=== PATIENT | female | born 1955 | race Hispanic/Latino ===

== ENCOUNTER → 2018-04-16 | Outpatient (CLI) | payer OTHER ==
[~2018-04-16] MED LIST: ATEN50TA PO; CALC-484 PO; CIPR-278 PO; MAGN400C PO; METR500T4 PO; PROM25TA7 PO; RANI300T4 PO; SUCR1TAB2 PO; SUMA100T PO
== END | disposition home or self-care (01) ==
LOC: RAH 13:54
PROVIDERS: ATTEND Family Medicine
DX: E04.2 Nontoxic multinodular goiter (principal)
CPT/HCPCS: 76536

== ENCOUNTER → 2018-05-04 | Outpatient (CLI) | payer OTHER | END | disposition home or self-care (01) | LOC: RAH 08:14 | PROVIDERS: ATTEND Family Medicine | DX: R55 Syncope and collapse (principal); I10 Essential (primary) hypertension; E66.9 Obesity, unspecified | CPT/HCPCS: 93306; 93880 ==

== ENCOUNTER 2018-06-18 08:14 | Day surgery (SDC) | payer OTHER ==
[2018-06-16 08:50] LABS: LYMPHOCYTES % (AUTO) 36.7 % (21.0-51.0); MEAN CORPUSCULAR HEMOGLOBIN 30.1 pg (27.0-33.0); MEAN CORPUSCULAR VOLUME 91.3 fL (79-99); MONOCYTES % (AUTO) 5.4 % (3.0-13.0); NEUTROPHILS % (AUTO) 54.9 % (40.0-77.0); NUCLEATED RED BLOOD CELLS 0.1 % (0.0-0.19); PLATELET COUNT (AUTO) 123 K/uL (130-400); RED BLOOD CELL COUNT(AUTO) 4.16 MIL/uL (4.00-5.50); RED CELL DISTRIBUTION WIDTH 14.1 % (11.0-15.5); WHITE BLOOD COUNT (AUTO) 4.6 K/uL (4.8-10.8)
[2018-06-16 08:51] VITALS: BP 137/82
[2018-06-16 08:56] LABS: APPEARANCE,URINE Clear (CLEAR); BILIRUBIN,URINE Negative (NEGATIVE); COLOR,URINE Yellow (YELLOW); GLUCOSE, URINE (UA) Negative (NEGATIVE); KETONES,URINE Negative (NEGATIVE); LEUKOCYTE ESTERASE ,URINE Trace (NEGATIVE); NITRATE,URINE Negative (NEGATIVE); OCCULT BLOOD,URINE Negative (NEGATIVE); PH,URINE 5.5 (5.0-8.0); PROTEIN,URINE POS 2+ (NEGATIVE); UROBILINOGEN,URINE 0.2 mg/dL (0.2-1.0)
[2018-06-16 09:06] LABS: CREATININE 0.6 mg/dL (0.5-1.5); POTASSIUM 3.6 mmol/L (3.5-5.1)
[2018-06-16 09:07] LABS: INR 0.93 (0.85-1.15); PARTIAL THROMBOPLASTIN TIME 27.8 SEC (26.3-35.5); PROTHROMBIN TIME 9.8 SEC (9.6-11.6)
[2018-06-16 09:14] LABS: BACTERIA,URINE Rare /HPF (None Seen); RBC,URINE 0-1 /HPF (0-1); SQUAMOUS EPITHELIAL CELL,UR Rare /HPF (0-2); WBC,URINE 0-1 /HPF (0-1)
[~2018-06-18] VITALS: Ht 160 cm; Wt 100.1 kg
[2018-06-18] VITALS (11 sets, daily range): BP systolic 117–156; BP diastolic 76–92
[~2018-06-18 08:14] MED LIST changes: +ASPI-555 PO; -ATEN50TA PO; -CALC-484 PO; -CIPR-278 PO; +DIAZ2TAB3 PO; +LISI10TA7 PO; -MAGN400C PO; -METR500T4 PO; +PANT40TA25 PO; -RANI300T4 PO; -SUCR1TAB2 PO; -SUMA100T PO
[2018-06-18] MEDS ORDERED: NITR0.4T50 SL (09:12)
[2018-06-18] MEDS ORDERED: SODIUM CHLORIDE 0.9% 1000ML 1,000 ML IV ONE (09:40)
[2018-06-18] MEDS ORDERED: LIDOCAINE HCL 2% 20ML ONE (14:39)
[2018-06-18] MEDS ORDERED: NITROGLYCERIN 5 MG/ML 10 ML VIAL IV ONE (14:39)
[2018-06-18] MEDS ORDERED: BIVALIRUDIN 250 MG/VIAL IV ONE (14:39)
[2018-06-18] MEDS ORDERED: IOHEXOL 350 MG/ML 100ML INFUS..BTL IV ONE (14:39)
[2018-06-18] MEDS ORDERED: IOHEXOL-350 50ML VIAL IV ONE (14:39)
[2018-06-18] MEDS ORDERED: MIDAZOLAM HCL 1 MG/ML 2ML VIAL ONE (15:22)
[2018-06-18] MEDS ORDERED: SODIUM CHLORIDE 0.9% 1000ML 1,000 ML IV SCH (16:05)
[2018-06-18] MEDS ORDERED: ACETAMINOPHEN EXTRA STRENGTH 500 MG TABLET ONE (17:08)
[2018-06-18] MEDS ORDERED: ACETAMINOPHEN EXTRA STRENGTH 500 MG TABLET PO ONE (17:15)
== END 2018-06-18 20:12 | disposition home or self-care (01) ==
LOC: DAH 08:14
PROVIDERS: ATTEND Internal Medicine Cardiovascular Disease
DX: I25.118 Atherosclerotic heart disease of native coronary artery with other forms of angina pectoris (principal); I10 Essential (primary) hypertension; Z68.39 Body mass index [BMI] 39.0-39.9, adult; Z98.890 Other specified postprocedural states; Z90.710 Acquired absence of both cervix and uterus; Z82.49 Family history of ischemic heart disease and other diseases of the circulatory system
CPT/HCPCS: 36415; 71045; 80048; 81001; 85025; 85610; 85730; 93005; 93458; A4606; C1760; C1894; J1644; J2250; J3490 ×2; J7030; Q9965; Q9967 ×2; J0583

== ENCOUNTER → 2018-07-19 | Outpatient (CLI) | payer OTHER ==
[~2018-07-19] MED LIST changes: +NITR0.4T50 SL
== END | disposition home or self-care (01) ==
LOC: RAH 12:55
PROVIDERS: ATTEND Obstetrics & Gynecology
DX: Z12.31 Encounter for screening mammogram for malignant neoplasm of breast (principal)
CPT/HCPCS: 77067

== ENCOUNTER → 2018-10-27 | Outpatient (CLI) | payer OTHER ==
[2018-10-27 17:07] LABS: CREATININE 0.5 mg/dL (0.5-1.5)
== END | disposition home or self-care (01) ==
LOC: LAB 16:17
PROVIDERS: ATTEND Internal Medicine Gastroenterology
DX: R10.13 Epigastric pain (principal)
CPT/HCPCS: 36415; 82565; 84520

== ENCOUNTER → 2018-10-28 | Outpatient (CLI) | payer OTHER | END | disposition home or self-care (01) | LOC: RAH 10:34 | PROVIDERS: ATTEND Internal Medicine Gastroenterology | DX: K31.84 Gastroparesis (principal) | CPT/HCPCS: 78264; A9541 ==

== ENCOUNTER → 2018-10-29 | Outpatient (CLI) | payer OTHER ==
[~2018-10-29] MED LIST changes: +IOHEXOL-350 75 ML VIAL IV ONE
== END | disposition home or self-care (01) ==
LOC: RAH 09:58
PROVIDERS: ATTEND Internal Medicine Gastroenterology
DX: K76.0 Fatty (change of) liver, not elsewhere classified (principal); K57.90 Diverticulosis of intestine, part unspecified, without perforation or abscess without bleeding; M47.815 Spondylosis without myelopathy or radiculopathy, thoracolumbar region; N32.89 Other specified disorders of bladder
CPT/HCPCS: 74178; Q9967

== ENCOUNTER 2018-12-15 13:00 | Emergency (ER) | payer OTHER ==
[~2018-12-15 13:00] MED LIST changes: -IOHEXOL-350 75 ML VIAL IV ONE
[2018-12-15] MEDS ORDERED: ORPHENADRINE CITRATE 30 MG/ML ML ONE (13:05)
[2018-12-15] MEDS ORDERED: KETOROLAC TROMETHAMINE 60 MG/2 ML VIAL ONE (13:05)
[2018-12-15] MEDS ORDERED: METHYLPREDNISOLONE SOD SUCC 125MG/2ML VIAL ONE (13:40)
== END 2018-12-15 14:02 | disposition home or self-care (01) ==
LOC: EDH 13:00
DX: T78.40XA Allergy, unspecified, initial encounter (principal); I10 Essential (primary) hypertension; E78.5 Hyperlipidemia, unspecified; Z98.890 Other specified postprocedural states; Z90.710 Acquired absence of both cervix and uterus; X58.XXXA Exposure to other specified factors, initial encounter
CPT/HCPCS: 96372; 99283; J2930; J1885

== ENCOUNTER 2019-06-29 06:43 | Emergency (ER) | payer OTHER ==
[2019-06-29] MEDS ORDERED: KETOROLAC TROMETHAMINE 30MG/ML ONE (07:30)
[2019-06-29] MEDS ORDERED: MORPHINE SULFATE 5 MG/ML VIAL ONE (07:31)
[2019-06-29 07:54] LABS: APPEARANCE,URINE Clear (CLEAR); BILIRUBIN,URINE Negative (NEGATIVE); COLOR,URINE Yellow (YELLOW); GLUCOSE, URINE (UA) Negative (NEGATIVE); KETONES,URINE Negative (NEGATIVE); LEUKOCYTE ESTERASE ,URINE Trace (NEGATIVE); NITRATE,URINE Negative (NEGATIVE); OCCULT BLOOD,URINE Negative (NEGATIVE); PROTEIN,URINE Trace mg/dL (NEGATIVE)
[2019-06-29 08:22] LABS: BACTERIA,URINE Rare /HPF (None Seen); RBC,URINE 0-1 /HPF (0-1); SQUAMOUS EPITHELIAL CELL,UR Rare /HPF (0-2); WBC,URINE 0-1 /HPF (0-1)
== END 2019-06-29 07:40 | disposition home or self-care (01) ==
LOC: EDH 06:43
DX: M54.5 Low back pain (principal); E78.5 Hyperlipidemia, unspecified; G89.29 Other chronic pain; I10 Essential (primary) hypertension; Z98.890 Other specified postprocedural states; Z87.891 Personal history of nicotine dependence
CPT/HCPCS: 81001; 96372 ×2; 99284; J1885; J2270

== ENCOUNTER 2019-11-28 12:00 | Inpatient (IN) | payer OTHER ==
[2019-11-25 10:48] VITALS: BP 150/91
[2019-11-25 15:10] LABS: BASOPHILS % (AUTO) 0.2 % (0.0-5.0); EOSINOPHILS % (AUTO) 2.3 % (0.0-8.0); HEMATOCRIT 39.2 % (36-48); LYMPHOCYTES % (AUTO) 35.8 % (21.0-51.0); MEAN CORPUSCULAR HEMOGLOBIN 30.1 pg (27.0-33.0); MEAN CORPUSCULAR HGB CONC 33.7 g/dL (32.0-36.0); MEAN CORPUSCULAR VOLUME 89.5 fL (79-99); MONOCYTES % (AUTO) 6.1 % (3.0-13.0); NEUTROPHILS % (AUTO) 55.2 % (40.0-77.0); PLATELET COUNT (AUTO) 136 K/uL (130-400); RED BLOOD CELL COUNT(AUTO) 4.38 MIL/uL (4.00-5.50); RED CELL DISTRIBUTION WIDTH 12.3 % (11.0-15.5); WHITE BLOOD COUNT (AUTO) 5.6 K/uL (4.8-10.8)
[2019-11-25 15:23] LABS: INR 0.93 (0.85-1.15); PARTIAL THROMBOPLASTIN TIME 26.4 SEC (26.3-35.5); PROTHROMBIN TIME 10.1 SEC (9.6-11.6)
[~2019-11-28] VITALS: Ht 162.6 cm; Wt 101.2 kg
[~2019-11-28 12:00] MED LIST changes: -ASPI-555 PO; +CLON0.5T4 PO; -DIAZ2TAB3 PO; +HYDR-4068 PO; -LISI10TA7 PO; +LISI40TA4 PO; -NITR0.4T50 SL; -PANT40TA25 PO
[2019-11-29] VITALS (23 sets, daily range): BP systolic 96–145; BP diastolic 51–96
[2019-11-29] MEDS ORDERED: LACTATED RINGERS 1000ML 1,000 ML IV ONE (06:08)
[2019-11-29] MEDS ORDERED: CEFAZOLIN SODIUM 1 GM VIAL ONE ×2 (06:09→06:49)
[2019-11-29] MEDS ORDERED: VANCOMYCIN HCL 1 GM VIAL ONE (06:44)
[2019-11-29] MEDS ORDERED: BUPIVACAINE/PF 0.25% 30ML VIAL IJ ONE (06:44)
[2019-11-29] MEDS ORDERED: THROMBIN-JMI 5000 UNIT/VIAL TP ONE (06:45)
[2019-11-29] MEDS ORDERED: DURAMORPH PF1 MG/ML 10ML AMP IV ONE (06:45)
[2019-11-29] MEDS ORDERED: THROMBIN-JMI 20000 UNIT KIT TP ONE (06:49)
--- NOTE | 2019-11-29 06:51 | NUR ---
ANESTHESIA Christiano Muniz CRNA here assessed pt ,notified of BP AND PAIN Addendum: 11/29/19 at 0653 by CURT BOYLE RN RN Amended: Links added.
[2019-11-29] MEDS ORDERED: FENTANYL CITRATE PF 50 MCG/1 ML 2ML VIAL ONE ×2 (06:57→07:59)
[2019-11-29] MEDS ORDERED: LIDOCAINE PF 2% 5ML ABBOJECT ONE (06:57)
[2019-11-29] MEDS ORDERED: DEXAMETHASONE SOD PHOSPHATE 10MG/ML 1ML VIAL ONE (06:57)
[2019-11-29] MEDS ORDERED: ONDANSETRON HCL 4 MG/2 ML VIAL ONE ×2 (06:57→11:49)
[2019-11-29] MEDS ORDERED: PROPOFOL 10 MG/ML 20ML VIAL IV ONE (06:58)
[2019-11-29] MEDS ORDERED: MIDAZOLAM HCL 1 MG/ML 2ML VIAL ONE (06:58)
[2019-11-29] MEDS ORDERED: ROCURONIUM 10MG/1ML SYR 10 MG/ML ML ONE (06:58)
[2019-11-29] MEDS ORDERED: MEPERIDINE-PF 25 MG/ML SYG ONE ×2 (07:02→11:20)
[2019-11-29] MEDS ORDERED: CEFAZOLIN 3GM /D5W 100ML 100 ML IV PRN (08:00)
[2019-11-29] MEDS ORDERED: EPHEDRINE SULFATE 50 MG/ML AMPULE ONE (08:26)
[2019-11-29] MEDS ORDERED: TOBRAMYCIN SULFATE 40MG/1ML VIAL ONE (09:02)
[2019-11-29] MEDS: CALDOLOR 800MG+NS 250ML 250 ML IV SCH ×2 (10:00→11:00)
[2019-11-29] MEDS ORDERED: GLYCOPYRROLATE 1 MG/5 ML SYRINGE ONE (10:24)
[2019-11-29] MEDS ORDERED: BACITRACIN 28.4 GM OINT TP ONE (10:25)
[2019-11-29] MEDS ORDERED: NEOSTIGMINE 5MG/5ML SYR IV ONE (10:25)
[2019-11-29] MEDS ORDERED: MORPHINE SULFATE 2 MG/ML 1ML SYG ONE (11:32)
[2019-11-29] MEDS ORDERED: ACETAMINOPHEN-CODEINE 300/30MG TAB ONE (14:22)
[2019-11-29] MEDS: SODIUM CHLORIDE 0.9% 1000ML 1,000 ML IV SCH (14:24)
[2019-11-29] MEDS: CEFAZOLIN SODIUM 1 GM VIAL IVP SCH ×2 (14:25→21:10)
[2019-11-29] MEDS ORDERED: MEPERIDINE-PF 75 MG/ML SYG IVP PRN (15:54)
[2019-11-29] MEDS: MEPERIDINE-PF 50 MG/ML SYG IVP PRN ×3 (16:11→23:40)
[2019-11-29] MEDS: MEPERIDINE-PF 25 MG/ML SYG IVP PRN ×3 (16:12→23:39)
[2019-11-29] MEDS ORDERED: MEPERIDINE-PF 25 MG/ML SYG IVP PRN (16:15)
--- NOTE | 2019-11-29 16:15 | NUR ---
MICHAEL PLAN VISITED WITH PATIENT POST PROCEDURE. SAID SHE IS GROGGY AND TIRED AND IF CM COULD RETURN TO DO [place]. VERBALIZED UNDERSTANDING. CM WILL CONTINUE TO FOLLOW. Addendum: 11/29/19 at 1616 by OTIS TONY RN CM Amended: Links added.
--- NOTE | 2019-11-29 16:19 | NUR ---
PT J-P COMPRESSED, AND GIVEN 75MG DEMEROL IM FOR PAIN TO LOWER BACK AND LEFT LEG.
[2019-11-29] MEDS: ACETAMINOPHEN-CODEINE 300/30MG TAB PO PRN (21:21)
[2019-11-29] MEDS ORDERED: PROMETHAZINE HCL 25 MG TABLET PO PRN ×2 (21:45→23:15)
[2019-11-29] MEDS ORDERED: HYDROCODONE/ACETAMINOPHEN 10/325 MG TAB PO PRN ×2 (21:45→23:15)
[2019-11-29] MEDS ORDERED: CLONAZEPAM 0.5 MG TABLET PO PRN (21:45)
[2019-11-29] MEDS: PHARMACY COMMUNICATION MISC SCH (22:00)
[2019-11-29] MEDS ORDERED: CLONAZEPAM 1 MG TABLET PO PRN (23:15)
[2019-11-30 00:06] VITALS: BP 101/65
[2019-11-30] MEDS: SODIUM CHLORIDE 0.9% 1000ML 1,000 ML IV SCH (02:31)
[2019-11-30] MEDS: MEPERIDINE-PF 50 MG/ML SYG IVP PRN ×4 (03:14→17:34)
[2019-11-30] MEDS: MEPERIDINE-PF 25 MG/ML SYG IVP PRN (03:15)
[2019-11-30 03:27] VITALS: BP 95/59
[2019-11-30] MEDS: ACETAMINOPHEN-CODEINE 300/30MG TAB PO PRN ×2 (05:20→20:04)
[2019-11-30] MEDS: CEFAZOLIN SODIUM 1 GM VIAL IVP SCH ×3 (05:20→19:59)
[2019-11-30] MEDS: PHARMACY COMMUNICATION MISC SCH ×3 (05:51→22:00)
[2019-11-30 07:30] VITALS: BP 101/50
[2019-11-30] MEDS: LISINOPRIL 40 MG TABLET PO SCH (09:00)
[2019-11-30] MEDS: GABAPENTIN 300 MG CAPSULE PO SCH ×2 (09:20→19:59)
[2019-11-30 11:09] VITALS: BP 113/69
[2019-11-30 15:52] VITALS: BP 142/86
[2019-11-30 20:00] VITALS: BP 124/79
--- NOTE | 2019-11-30 20:40 | NUR ---
paged Dr. cohen about patient' fever of.101.7 and tachycardia of 134. he ordered ice packs and continue to monitor.
[2019-12-01] VITALS (7 sets, daily range): BP systolic 100–142; BP diastolic 67–88
[2019-12-01] MEDS: ACETAMINOPHEN-CODEINE 300/30MG TAB PO PRN ×2 (00:51→09:08)
[2019-12-01] MEDS: MEPERIDINE-PF 50 MG/ML SYG IVP PRN ×5 (04:12→21:56)
[2019-12-01] MEDS: CEFAZOLIN SODIUM 1 GM VIAL IVP SCH ×3 (04:35→22:47)
[2019-12-01] MEDS: PHARMACY COMMUNICATION MISC SCH ×2 (06:00→14:00)
[2019-12-01] MEDS: LISINOPRIL 40 MG TABLET PO SCH (09:07)
[2019-12-01] MEDS: GABAPENTIN 300 MG CAPSULE PO SCH ×2 (09:07→21:10)
--- NOTE | 2019-12-01 14:52 | NUR ---
DCP CM met with pt discussed dc plans. Pt is independent prior to admission, lives at home with daughter Kelle [phone] and 3 sons. Denies any equipments/services. Feels safe to go back home, still drives, children able to assist with transportation and needs as necessary. DC plan to home once stable. CM to cont to follow up. Addendum: 12/01/19 at 1454 by MARGOT CREWS LVN CM Amended: Links added.
--- NOTE | 2019-12-01 17:30 | NUR ---
DR. GIPSON SPOKE TO PATIENT REGARDING DISCHARGE PLANNED FOR TOMORROW. INSTRUCTED PATIENT ON REMOVAL OF JERI IF LESS THAN 50ML. FOLLOW UP WITH HIM IN 2 WEEKS. RX LEFT IN CHART. SEE WRITTEN POST-OP DISCHARGE ORDERS.
[2019-12-02] MEDS: MEPERIDINE-PF 25 MG/ML SYG IVP PRN (02:33)
[2019-12-02] MEDS: ACETAMINOPHEN-CODEINE 300/30MG TAB PO PRN ×4 (03:57→18:24)
[2019-12-02 04:00] VITALS: BP 120/68
[2019-12-02] MEDS: CEFAZOLIN SODIUM 1 GM VIAL IVP SCH ×2 (05:37→14:03)
[2019-12-02 08:00] VITALS: BP 131/80
--- NOTE | 2019-12-02 08:15 | NUR ---
DR BRANDAN GIPSON CALLED AND GIVEN INFORMATION ON JERI DRAIN DRAINAGES OVER 50 (60 ON NIGHTS)SAID WILL LOOK AT RECOVERING JERI DRAIN THIS AFTER NOON AND POSSIBLE DISCHARGE. Addendum: 12/02/19 at 1708 by LULU ORDONEZ RN RN ERROR FROM ABOVE NOTE DR LOOMIS CALLED WITH ORDERS FOR JERI DRAIN
[2019-12-02] MEDS: GABAPENTIN 300 MG CAPSULE PO SCH (08:40)
[2019-12-02] MEDS: LISINOPRIL 40 MG TABLET PO SCH (08:41)
--- NOTE | 2019-12-02 09:42 | NUR ---
PT C/0 PAIN TO THE LEFT LEG, ALSO JERI HAD 60 ML/OVERNIGHT.
[2019-12-02 12:00] VITALS: BP 125/77
[2019-12-02] MEDS: PHARMACY COMMUNICATION MISC SCH (14:00)
[2019-12-02] MEDS ORDERED: MEPERIDINE-PF 25 MG/ML SYG IM PRN (15:15)
[2019-12-02] MEDS ORDERED: MEPERIDINE-PF 50 MG/ML SYG IM PRN (15:15)
--- NOTE | 2019-12-02 17:08 | NUR ---
DR ABREU CALLED WITH ORDERS TO Abhilash CUNHA AT 1700 AND PATIENT MAY BE DISCHARGE FOLLOW-UP WITH HIS OFFICE 2 WEEKS. Addendum: 12/02/19 at 1901 by LULU ORDONEZ RN RN DR GIPSON CALLED ORDERS FOR ABOVE
--- NOTE | 2019-12-02 19:06 | NUR ---
PATIENT GIVEN DISCHARGE ORDERS AND VERBALIZED UNDERSTANDING , IV REMOVED WITH CATHETER INTACT AND SITE DRESSED, JERI DRAIN PULLED AND DRESSING REMOVED AND AREA CLEANSE WITH NORMAL SALINE( SITE INTACT WITH STABLES) AND CLEAN DRESSING PLACED AND SECURED WITH TAPE TO BACK. PATIENT DENIES PAIN AT THIS TIME WAS MEDICATED FOR PAIN AT 1820. PATIENT CALL FOR RIDE AND SISTER HERE . SO PATIENT TAKING DOWN VIA WHEELCHAIR TO ER AREA AND LEFT WITH SISTER FOR HOME.
== END 2019-12-02 19:10 | disposition home or self-care (01) | DRG 460 ==
LOC: EDSTATUS 12:00 → DAHIP 11-29 05:08 → 3BH 11-29 12:00
PROVIDERS: ADMIT Neurological Surgery; ATTEND Neurological Surgery
PROC: 0SG30K1 Fusion of Lumbosacral Joint with Nonautologous Tissue Substitute, Posterior Approach, Posterior Column, Open Approach (ICD-10-PCS; principal; 2019-11-29 07:10)
PROC: 0SG00K1 Fusion of Lumbar Vertebral Joint with Nonautologous Tissue Substitute, Posterior Approach, Posterior Column, Open Approach (ICD-10-PCS; 2019-11-29 07:10)
DX: M48.062 Spinal stenosis, lumbar region with neurogenic claudication (principal); I10 Essential (primary) hypertension; E66.9 Obesity, unspecified; Z79.899 Other long term (current) drug therapy; Z68.38 Body mass index [BMI] 38.0-38.9, adult; M48.08 Spinal stenosis, sacral and sacrococcygeal region
CPT/HCPCS: 36415; 72110; 85025; 85610; 85730; 96374; A4344; G0378; J0690; J1030; J1100; J1741; J2001; J2175; J2250; J2274; J2405; J2704; J2710; J3010; J3260; J3370; J3490; J7030; J7120; Q0169

== ENCOUNTER → 2020-05-21 | Outpatient (CLI) | payer OTHER | END | disposition home or self-care (01) | LOC: RAH 13:08 | PROVIDERS: ATTEND Obstetrics & Gynecology | DX: Z12.31 Encounter for screening mammogram for malignant neoplasm of breast (principal); N64.89 Other specified disorders of breast | CPT/HCPCS: 77067 ==

== ENCOUNTER 2020-06-01 11:41 | Emergency (ER) | payer OTHER ==
[2020-06-01] MEDS ORDERED: KETOROLAC TROMETHAMINE 60 MG/2 ML VIAL ONE (13:15)
[2020-06-01] MEDS ORDERED: LIDOCAINE 5% TOPICAL PATCH TP ONE (13:15)
[2020-06-01] MEDS ORDERED: ACETAMINOPHEN-CODEINE 300/30MG TAB ONE (13:16)
[2020-06-01] MEDS ORDERED: DEXAMETHASONE SOD PHOSPHATE 10MG/ML 1ML VIAL ONE (13:16)
== END 2020-06-01 14:06 | disposition home or self-care (01) ==
LOC: EDH 11:41
DX: M54.30 Sciatica, unspecified side (principal); G89.29 Other chronic pain; E78.5 Hyperlipidemia, unspecified; I10 Essential (primary) hypertension; Z90.49 Acquired absence of other specified parts of digestive tract; Z90.710 Acquired absence of both cervix and uterus; Z98.890 Other specified postprocedural states
CPT/HCPCS: 96372 ×2; 99284; J1100; J1885

== ENCOUNTER 2020-07-05 12:45 | Inpatient (IN) | payer OTHER ==
[~2020-07-05] VITALS: Ht 162.6 cm; Wt 99.1 kg
[~2020-07-05 12:45] MED LIST changes: -HYDR-4068 PO
[2020-07-05 14:50] LABS: BASOPHILS % (AUTO) 0.2 % (0.0-5.0); EOSINOPHILS % (AUTO) 2.5 % (0.0-8.0); HEMATOCRIT 37.7 % (36-48); LYMPHOCYTES % (AUTO) 32.5 % (21.0-51.0); MEAN CORPUSCULAR HEMOGLOBIN 29.9 pg (27.0-33.0); MEAN CORPUSCULAR HGB CONC 32.4 g/dL (32.0-36.0); MEAN CORPUSCULAR VOLUME 92.4 fL (79-99); MONOCYTES % (AUTO) 5.7 % (3.0-13.0); NEUTROPHILS % (AUTO) 58.2 % (40.0-77.0); PLATELET COUNT (AUTO) 150 K/uL (130-400); RED BLOOD CELL COUNT(AUTO) 4.08 MIL/uL (4.00-5.50); RED CELL DISTRIBUTION WIDTH 13.4 % (11.0-15.5); WHITE BLOOD COUNT (AUTO) 5.6 K/uL (4.8-10.8)
[2020-07-05 14:57] LABS: CREATININE 0.6 mg/dL (0.5-1.5); POTASSIUM 3.6 mmol/L (3.5-5.1)
[2020-07-05 15:21] LABS: INR 0.9 (0.85-1.15); PROTHROMBIN TIME 9.7 SEC (9.6-11.6)
[2020-07-05 15:22] LABS: PARTIAL THROMBOPLASTIN TIME 25.9 SEC (26.3-35.5)
[2020-07-09 11:08] VITALS: BP 137/94
[2020-07-09] MEDS ORDERED: VITA1CAP85 PO (11:25)
[2020-07-09] MEDS ORDERED: VITA100051 PO (11:25)
[2020-07-09] MEDS ORDERED: LISI-613 PO (11:25)
[2020-07-09] MEDS ORDERED: MULT-660 PO (11:25)
[2020-07-09] MEDS ORDERED: CYAN50008 PO (11:25)
[2020-07-09] MEDS: SODIUM CHLORIDE 0.9% 1000ML 1,000 ML IV SCH (14:45)
[2020-07-09] MEDS: CEFAZOLIN SODIUM 1 GM VIAL IVP SCH (14:45)
[2020-07-10] VITALS (26 sets, daily range): BP systolic 114–155; BP diastolic 67–102
[2020-07-10] MEDS ORDERED: LACTATED RINGERS 1000ML 1,000 ML IV ONE (06:36)
[2020-07-10] MEDS ORDERED: TOBRAMYCIN SULFATE 40MG/1ML VIAL ONE (07:00)
[2020-07-10] MEDS ORDERED: VANCOMYCIN HCL 1 GM VIAL ONE (07:00)
[2020-07-10] MEDS ORDERED: BUPIVACAINE/PF 0.25% 10ML VIAL IJ ONE (07:00)
[2020-07-10] MEDS ORDERED: THROMBIN-JMI 20000 UNIT KIT TP ONE (07:01)
[2020-07-10] MEDS ORDERED: DURAMORPH PF1 MG/ML 10ML AMP IV ONE (07:01)
[2020-07-10] MEDS ORDERED: MEPERIDINE-PF 25 MG/ML SYG ONE ×4 (07:03→11:27)
[2020-07-10] MEDS ORDERED: MIDAZOLAM HCL 1 MG/ML 2ML VIAL ONE (07:11)
[2020-07-10] MEDS ORDERED: SUCCINYLCHOLINE 200MG/10ML SYR ONE (07:11)
[2020-07-10] MEDS ORDERED: FENTANYL CITRATE PF 50 MCG/1 ML 2ML VIAL ONE ×2 (07:11→09:32)
[2020-07-10] MEDS ORDERED: LIDOCAINE PF 2% 5ML ABBOJECT ONE (07:11)
[2020-07-10] MEDS ORDERED: ONDANSETRON HCL 4 MG/2 ML VIAL ONE ×3 (07:11→11:03)
[2020-07-10] MEDS ORDERED: DEXAMETHASONE SOD PHOSPHATE 10MG/ML 1ML VIAL ONE (07:11)
[2020-07-10] MEDS ORDERED: PROPOFOL 10 MG/ML 20ML VIAL IV ONE (07:11)
[2020-07-10] MEDS ORDERED: ROCURONIUM 10MG/1ML SYR 10 MG/ML ML ONE (07:12)
[2020-07-10] MEDS ORDERED: LINA72CA PO (07:14)
[2020-07-10] MEDS ORDERED: ICOS1CAP PO (07:14)
[2020-07-10] MEDS: CEFAZOLIN SODIUM 1 GM VIAL IVP SCH ×4 (07:35→19:38)
[2020-07-10] MEDS ORDERED: TRANEXAMIC ACID 1000MG/10ML ONE (07:41)
[2020-07-10] MEDS ORDERED: EPHEDRINE SULFATE 50 MG/ML AMPULE ONE (08:03)
[2020-07-10] MEDS ORDERED: ACETAMINOPHEN-CODEINE 300/30MG TAB PO PRN (12:00)
[2020-07-10] MEDS: SODIUM CHLORIDE 0.9% 1000ML 1,000 ML IV SCH ×2 (12:00→14:01)
[2020-07-10] MEDS ORDERED: NALOXONE HCL 0.4 MG/1 ML ML IVP PRN (12:00)
[2020-07-10] MEDS ORDERED: TRIMETHOBENZAMIDE HCL 100MG/1ML VIAL IM PRN (12:00)
[2020-07-10] MEDS: MEPERIDINE-PF 75 MG/ML SYG IM PRN ×3 (14:02→21:53)
[2020-07-10] MEDS ORDERED: PROMETHAZINE HCL 25 MG TABLET PO PRN (14:45)
[2020-07-10] MEDS ORDERED: CLONAZEPAM 0.5 MG TABLET PO PRN (14:45)
[2020-07-10] MEDS: FISH OIL 1000 MG/CAP PO SCH (15:25)
[2020-07-10] MEDS: CYANOCOBALAMIN (VITAMIN B-12) 1,000 MCG TABLET PO SCH (15:29)
[2020-07-10] MEDS ORDERED: ONDANSETRON HCL 4 MG/2 ML VIAL IVP PRN (17:45)
[2020-07-10] MEDS: LISINOPRIL 20 MG TABLET PO SCH (19:46)
[2020-07-10] MEDS: ACETAMINOPHEN-CODEINE 300/30MG TAB PO PRN (19:47)
[2020-07-11] MEDS: CEFAZOLIN SODIUM 1 GM VIAL IVP SCH ×2 (03:52→12:47)
[2020-07-11 03:56] VITALS: BP 114/69
[2020-07-11] MEDS: MEPERIDINE-PF 75 MG/ML SYG IM PRN ×3 (05:47→14:45)
[2020-07-11 06:26] VITALS: BP 107/87
[2020-07-11] MEDS: PHARMACY COMMUNICATION MISC SCH ×4 (08:00→23:27)
[2020-07-11] MEDS ORDERED: CYANOCOBALAMIN PO SCH (09:00)
[2020-07-11] MEDS: LINACLOTIDE 72 MCG PO SCH (09:00)
[2020-07-11] MEDS: LISINOPRIL 40 MG TABLET PO SCH (09:36)
[2020-07-11] MEDS: FISH OIL 1000 MG/CAP PO SCH (09:36)
[2020-07-11] MEDS: CYANOCOBALAMIN (VITAMIN B-12) 1,000 MCG TABLET PO SCH (09:37)
[2020-07-11] MEDS: MULTIVITAMIN TABLET PO SCH (09:37)
[2020-07-11] MEDS: VITAMIN B COMPLEX 1 CAPSULE PO SCH (09:37)
[2020-07-11] MEDS: SODIUM CHLORIDE 0.9% 1000ML 1,000 ML IV SCH ×3 (11:16→20:58)
[2020-07-11 11:55] VITALS: BP 111/70
[2020-07-11 16:00] VITALS: BP 136/94
[2020-07-11 19:30] VITALS: BP 143/90
[2020-07-11] MEDS: ACETAMINOPHEN-CODEINE 300/30MG TAB PO PRN (21:00)
[2020-07-11] MEDS: LISINOPRIL 20 MG TABLET PO SCH (21:08)
[2020-07-11 23:23] VITALS: BP 123/74
[2020-07-12] MEDS: ACETAMINOPHEN-CODEINE 300/30MG TAB PO PRN ×2 (03:34→19:14)
[2020-07-12 04:00] VITALS: BP 118/71
[2020-07-12] MEDS: MEPERIDINE-PF 75 MG/ML SYG IM PRN ×4 (05:02→17:29)
[2020-07-12 07:30] VITALS: BP 126/60
[2020-07-12] MEDS: FISH OIL 1000 MG/CAP PO SCH (09:00)
[2020-07-12] MEDS: LINACLOTIDE 72 MCG PO SCH (09:00)
[2020-07-12] MEDS: CYANOCOBALAMIN (VITAMIN B-12) 1,000 MCG TABLET PO SCH (09:14)
[2020-07-12] MEDS: MULTIVITAMIN TABLET PO SCH (09:14)
[2020-07-12] MEDS: VITAMIN B COMPLEX 1 CAPSULE PO SCH (09:14)
[2020-07-12] MEDS: LISINOPRIL 40 MG TABLET PO SCH (09:14)
[2020-07-12 11:00] VITALS: BP 125/63
[2020-07-12] MEDS: SODIUM CHLORIDE 0.9% 1000ML 1,000 ML IV SCH (12:59)
[2020-07-12] MEDS: PHARMACY COMMUNICATION MISC SCH ×2 (16:00→23:43)
[2020-07-12 19:00] VITALS: BP 148/90
[2020-07-12] MEDS: LISINOPRIL 20 MG TABLET PO SCH (20:48)
[2020-07-13] VITALS: BP 133/73
[2020-07-13] MEDS: MEPERIDINE-PF 75 MG/ML SYG IM PRN ×3 (00:30→12:41)
[2020-07-13 04:00] VITALS: BP 138/90
[2020-07-13] MEDS: ACETAMINOPHEN-CODEINE 300/30MG TAB PO PRN ×2 (04:22→15:06)
[2020-07-13 07:54] VITALS: BP 134/81
[2020-07-13] MEDS: PHARMACY COMMUNICATION MISC SCH (08:00)
[2020-07-13] MEDS: MULTIVITAMIN TABLET PO SCH (09:00)
[2020-07-13] MEDS: FISH OIL 1000 MG/CAP PO SCH (09:00)
[2020-07-13] MEDS: CYANOCOBALAMIN (VITAMIN B-12) 1,000 MCG TABLET PO SCH (09:00)
[2020-07-13] MEDS: LINACLOTIDE 72 MCG PO SCH (09:00)
[2020-07-13] MEDS: VITAMIN B COMPLEX 1 CAPSULE PO SCH (09:00)
[2020-07-13] MEDS: SODIUM CHLORIDE 0.9% 1000ML 1,000 ML IV SCH ×2 (09:48→11:49)
[2020-07-13] MEDS: LISINOPRIL 40 MG TABLET PO SCH (09:53)
[2020-07-13 11:38] VITALS: BP 104/66
[2020-07-13 16:27] VITALS: BP 132/78
== END 2020-07-13 17:40 | disposition home or self-care (01) | DRG 460 ==
LOC: EDSTATUS 12:45 → DAHIP 07-10 05:45 → 3CH 07-10 10:59
PROVIDERS: ADMIT Neurological Surgery; ATTEND Neurological Surgery
PROC: 0SG1071 Fusion of 2 or more Lumbar Vertebral Joints with Autologous Tissue Substitute, Posterior Approach, Posterior Column, Open Approach (ICD-10-PCS; principal; 2020-07-10 07:30)
PROC: 0SP304Z Removal of Internal Fixation Device from Lumbosacral Joint, Open Approach (ICD-10-PCS; 2020-07-10 07:30)
DX: M48.061 Spinal stenosis, lumbar region without neurogenic claudication (principal); M51.16 Intervertebral disc disorders with radiculopathy, lumbar region; Z20.828 Contact with and (suspected) exposure to other viral communicable diseases; M96.1 Postlaminectomy syndrome, not elsewhere classified; I10 Essential (primary) hypertension; F41.9 Anxiety disorder, unspecified; M46.86 Other specified inflammatory spondylopathies, lumbar region; G89.4 Chronic pain syndrome; M13.88 Other specified arthritis, other site; Z98.1 Arthrodesis status; Z98.891 History of uterine scar from previous surgery; Z80.9 Family history of malignant neoplasm, unspecified; Z82.49 Family history of ischemic heart disease and other diseases of the circulatory system; Z88.8 Allergy status to other drugs, medicaments and biological substances; Z79.891 Long term (current) use of opiate analgesic
CPT/HCPCS: 36415; 71045; 72110; 80048; 82948; 85025; 85610; 85730; 93005; A4344; G0378; J0330; J0690; J1030; J1100; J2001; J2175; J2250; J2274; J2405; J2704; J3010; J3260; J3370; J3490; J7030; J7120; U0003

== ENCOUNTER 2020-07-14 16:28 | Emergency (ER) | payer OTHER ==
[~2020-07-14 16:28] MED LIST changes: +CYAN50008 PO; +ICOS1CAP PO; +LINA72CA PO; +LISI-613 PO; +MULT-660 PO; +VITA1CAP85 PO
[2020-07-14] MEDS ORDERED: FENTANYL CITRATE PF 50 MCG/1 ML 2ML VIAL ONE (16:57)
== END 2020-07-14 17:47 | disposition home or self-care (01) ==
LOC: EDH 16:28
DX: B02.8 Zoster with other complications (principal); E78.5 Hyperlipidemia, unspecified; I10 Essential (primary) hypertension; G89.29 Other chronic pain; Z98.890 Other specified postprocedural states; Z90.49 Acquired absence of other specified parts of digestive tract; Z90.710 Acquired absence of both cervix and uterus; Z88.7 Allergy status to serum and vaccine
CPT/HCPCS: 96374; 99283; J3010

== ENCOUNTER → 2021-01-07 | Outpatient (CLI) | payer OTHER ==
[~2021-01-07] MED LIST changes: -CYAN50008 PO; +CYAN50009 PO; +GADOTERATE MEGLUMINE 10 MMOL/20 ML VIAL IV ONE; -LISI-613 PO; +LISI20TA24 PO; -LISI40TA4 PO; +LISI40TA9 PO
== END | disposition home or self-care (01) ==
LOC: RAH 08:36
PROVIDERS: ATTEND Family Medicine
DX: R51.9 Headache, unspecified (principal)
CPT/HCPCS: 70553; A9575

== ENCOUNTER 2022-11-28 13:04 | Emergency (ER) | payer OTHER ==
[~2022-11-28] VITALS: Ht 162.6 cm; Wt 81.2 kg
[~2022-11-28 13:04] MED LIST changes: -GADOTERATE MEGLUMINE 10 MMOL/20 ML VIAL IV ONE; +NAPR-1192 PO
[2022-11-28 14:09] LABS: EOSINOPHILS % (AUTO) 6.2 % (0.0-8.0); HEMATOCRIT 36.7 % (36-48); LYMPHOCYTES % (AUTO) 27.4 % (21.0-51.0); MEAN CORPUSCULAR HEMOGLOBIN 31.4 pg (27.0-33.0); MEAN CORPUSCULAR HGB CONC 33.2 g/dL (32.0-36.0); MEAN CORPUSCULAR VOLUME 94.3 fL (79-99); MONOCYTES % (AUTO) 5.7 % (3.0-13.0); NEUTROPHILS % (AUTO) 60.5 % (40.0-77.0); PLATELET COUNT (AUTO) 126 K/uL (130-400); RED BLOOD CELL COUNT(AUTO) 3.89 MIL/uL (4.00-5.50); RED CELL DISTRIBUTION WIDTH 13.2 % (11.0-15.5); WHITE BLOOD COUNT (AUTO) 4.4 K/uL (4.8-10.8)
[2022-11-28 14:22] LABS: CREATININE 0.5 mg/dL (0.5-1.5); POTASSIUM 4.2 mmol/L (3.5-5.1)
[2022-11-28 14:23] LABS: PARTIAL THROMBOPLASTIN TIME 27.2 SEC (26.3-35.5)
[2022-11-28 14:27] LABS: ALBUMIN 3.9 g/dL (3.5-5.0); TOTAL PROTEIN, SERUM 6.9 g/dL (6.0-8.3)
[2022-11-28 14:33] LABS: B-TYPE NATRIURETIC PEPTIDE 28 pg/mL (0-100)
[2022-11-28 14:49] LABS: INR 0.93 (0.85-1.15); PROTHROMBIN TIME 9.7 SEC (9.6-11.6)
[2022-11-28 16:57] VITALS: BP 125/78
== END 2022-11-28 17:09 | disposition home or self-care (01) ==
LOC: EDH 13:04
DX: R42 Dizziness and giddiness (principal); R29.810 Facial weakness; R53.1 Weakness; I10 Essential (primary) hypertension; Z79.899 Other long term (current) drug therapy; Z98.890 Other specified postprocedural states
CPT/HCPCS: 29105; 36415; 70450; 71045; 80053; 82550; 83880; 84484; 85025; 85610; 85730; 93005

== ENCOUNTER 2023-04-20 00:50 | Emergency (ER) | payer OTHER ==
[~2023-04-20] VITALS: Ht 162.6 cm; Wt 74.8 kg
[2023-04-20 01:27] LABS: BASOPHILS # (AUTO) 0.01 K/uL (0.00-0.20); BASOPHILS % (AUTO) 0.1 % (0.0-5.0); EOSINOPHILS % (AUTO) 2.7 % (0.0-8.0); HEMATOCRIT 38.5 % (36-48); IMMATURE GRANULOCYTE ABSOLUTE 0.01 K/uL (0-1); LYMPHOCYTES # (AUTO) 2.6 K/uL (1.0-4.8); LYMPHOCYTES % (AUTO) 35.1 % (21.0-51.0); MEAN CORPUSCULAR HEMOGLOBIN 31.9 pg (27.0-33.0); MEAN CORPUSCULAR HGB CONC 33.5 g/dL (32.0-36.0); MEAN CORPUSCULAR VOLUME 95.3 fL (79-99); MONOCYTES # (AUTO) 0.4 K/uL (0.1-1.0); MONOCYTES % (AUTO) 5.4 % (3.0-13.0); NEUTROPHILS # (AUTO) 4.2 K/uL (1.8-7.7); NEUTROPHILS % (AUTO) 56.6 % (40.0-77.0); PLATELET COUNT (AUTO) 121 K/uL (130-400); RED BLOOD CELL COUNT(AUTO) 4.04 MIL/uL (4.00-5.50); RED CELL DISTRIBUTION WIDTH 13.2 % (11.0-15.5); WHITE BLOOD COUNT (AUTO) 7.4 K/uL (4.8-10.8)
[2023-04-20] MEDS ORDERED: MORPHINE 4 MG SYG IVP ONE ×2 (01:30→03:00)
[2023-04-20] MEDS ORDERED: ONDANSETRON 4MG INJ IVP ONE (01:30)
[2023-04-20 01:40] LABS: CREATININE 0.6 mg/dL (0.5-1.5)
[2023-04-20 01:42] LABS: INR < 0.93 (0.85-1.15); PROTHROMBIN TIME 10.6 SEC (9.6-11.6)
[2023-04-20 01:42] LABS: APPEARANCE,URINE CLEAR (CLEAR); BILIRUBIN,URINE NEGATIVE (NEGATIVE); COLOR,URINE COLORLESS (YELLOW); GLUCOSE, URINE (UA) NEGATIVE (NEGATIVE); KETONES,URINE NEGATIVE (NEGATIVE); LEUKOCYTE ESTERASE ,URINE NEGATIVE Leu/uL (NEGATIVE); NITRATE,URINE NEGATIVE (NEGATIVE); OCCULT BLOOD,URINE NEGATIVE (NEGATIVE); PH,URINE 6.5 (5.0-8.0); PROTEIN,URINE NEGATIVE (NEGATIVE); UROBILINOGEN,URINE 0.2 mg/dL (0.2-1.0)
[2023-04-20 01:43] LABS: PARTIAL THROMBOPLASTIN TIME 28.6 SEC (26.3-35.5)
[2023-04-20 01:44] LABS: ADD UA MICROSCOPIC NO
[2023-04-20 01:51] LABS: ALBUMIN 3.9 g/dL (3.5-5.0); BILIRUBIN,TOTAL 0.2 mg/dL (0.2-1.0); MAGNESIUM 1.8 mg/dL (1.80-2.40); TOTAL PROTEIN, SERUM 7.3 g/dL (6.0-8.3)
[2023-04-20] MEDS ORDERED: IOHEXOL 350 MG/ML 100ML INFUS..BTL IV ONE (03:13)
[2023-04-20] MEDS ORDERED: LORAZEPAM 2 MG/ML 1 ML VIAL ONE (03:21)
[2023-04-20] MEDS ORDERED: LORAZEPAM 2 MG/ML 1 ML VIAL IVP ONE (03:30)
[2023-04-20 06:30] VITALS: BP 135/80; PULSE 70; RESP 16; O2SAT 97
== END 2023-04-20 06:32 | disposition home or self-care (01) ==
LOC: EDH 00:50
DX: M79.605 Pain in left leg (principal); G89.29 Other chronic pain; M54.50 Low back pain, unspecified; G44.209 Tension-type headache, unspecified, not intractable; I10 Essential (primary) hypertension; E78.00 Pure hypercholesterolemia, unspecified; Z79.899 Other long term (current) drug therapy; Z98.890 Other specified postprocedural states
CPT/HCPCS: 99285; 74174; 93970; 96374; 71275; 71045; 96375; 82550; 83735; 83874; 84484; 80053; 85025; 85378; 85610; 85730; 81003; 36415; 93005; 96376; J2405; J2060; J2270 ×2; Q9967

== ENCOUNTER → 2023-06-03 | Outpatient (CLI) | payer OTHER, MEDICARE ==
[2023-06-03 13:05] LABS: BILIRUBIN,TOTAL 0.5 mg/dL (0.2-1.0); CREATININE 0.6 mg/dL (0.5-1.5); POTASSIUM 4.2 mmol/L (3.5-5.1)
== END | disposition home or self-care (01) ==
LOC: LAB 09:18
PROVIDERS: ATTEND Internal Medicine Cardiovascular Disease
DX: I10 Essential (primary) hypertension (principal); R07.9 Chest pain, unspecified
CPT/HCPCS: 36415; 80053; 80061

== ENCOUNTER → 2023-06-17 | Outpatient (CLI) | payer OTHER | END | disposition home or self-care (01) | LOC: RAH 09:38 | PROVIDERS: ATTEND Family Medicine | DX: Z13.6 Encounter for screening for cardiovascular disorders (principal) | CPT/HCPCS: 75571 ==

== ENCOUNTER → 2023-07-29 | Outpatient (CLI) | payer OTHER, MEDICARE | END | disposition home or self-care (01) | LOC: RAH 10:35 | PROVIDERS: ATTEND Family Medicine | DX: Z12.31 Encounter for screening mammogram for malignant neoplasm of breast (principal) | CPT/HCPCS: 77067 ==

== ENCOUNTER → 2023-08-06 | Outpatient (CLI) | payer OTHER, MEDICARE | END | disposition home or self-care (01) | LOC: RAH 14:52 | PROVIDERS: ATTEND Family Medicine | DX: M17.12 Unilateral primary osteoarthritis, left knee (principal); M25.562 Pain in left knee; M79.662 Pain in left lower leg | CPT/HCPCS: 73562; 93971 ==

== ENCOUNTER 2023-12-15 19:14 | Emergency (ER) | payer OTHER, MEDICARE ==
[2023-12-15] MEDS: MORPHINE 2 MG SYG IVP ONE ×3 (20:10→22:55)
[2023-12-15] MEDS: ONDANSETRON 4MG INJ IVP ONE (20:10)
[2023-12-15 20:30] LABS: EOSINOPHILS # (AUTO) 0.35 K/uL (0.00-0.70); EOSINOPHILS % (AUTO) 5.4 % (0.0-8.0); HEMATOCRIT 39.2 % (36-48); IMMATURE GRANULOCYTE ABSOLUTE 0.02 K/uL (0-1); LYMPHOCYTES # (AUTO) 1.9 K/uL (1.0-4.8); LYMPHOCYTES % (AUTO) 30.2 % (21.0-51.0); MEAN CORPUSCULAR HEMOGLOBIN 32.7 pg (27.0-33.0); MEAN CORPUSCULAR HGB CONC 33.7 g/dL (32.0-36.0); MONOCYTES # (AUTO) 0.4 K/uL (0.1-1.0); MONOCYTES % (AUTO) 5.4 % (3.0-13.0); NEUTROPHILS # (AUTO) 3.8 K/uL (1.8-7.7); NEUTROPHILS % (AUTO) 58.7 % (40.0-77.0); PLATELET COUNT (AUTO) 108 K/uL (130-400); RED BLOOD CELL COUNT(AUTO) 4.04 MIL/uL (4.00-5.50); RED CELL DISTRIBUTION WIDTH 12.9 % (11.0-15.5); WHITE BLOOD COUNT (AUTO) 6.4 K/uL (4.8-10.8)
[2023-12-15 20:39] LABS: CREATININE 0.5 mg/dL (0.5-1.0); POTASSIUM 3.8 mmol/L (3.5-5.1)
[2023-12-15] MEDS ORDERED: IOHEXOL 350 MG/ML 100ML INFUS..BTL IV ONE (20:58)
[2023-12-15] MEDS: KETOROLAC 30MG VIAL (30MG/ML) IVP ONE (21:58)
[2023-12-15] MEDS ORDERED: CYCL7.5T27 PO (22:31)
[2023-12-15] MEDS ORDERED: KETO10TA2 PO (22:31)
[2023-12-15 23:22] VITALS: BP 132/68; PULSE 70; RESP 16; O2SAT 100
== END 2023-12-15 23:24 | disposition home or self-care (01) ==
LOC: EDH 19:14
DX: S20.212A Contusion of left front wall of thorax, initial encounter (principal); I10 Essential (primary) hypertension; E78.00 Pure hypercholesterolemia, unspecified; Z79.899 Other long term (current) drug therapy; Z98.890 Other specified postprocedural states; Z88.8 Allergy status to other drugs, medicaments and biological substances; V49.88XA Car occupant (driver) (passenger) injured in other specified transport accidents, initial encounter; Y93.I9 Activity, other involving external motion; Y92.488 Other paved roadways as the place of occurrence of the external cause; Y99.8 Other external cause status
CPT/HCPCS: 99285; 70450; 96374; 96375; 71045; 84484; 80048; 85025; 36415; 72125; 71260; 74177; 93005; 96376; J2270 ×3; J2405; J1885; Q9967

== ENCOUNTER 2024-03-18 09:32 | Emergency (ER) | payer OTHER ==
[~2024-03-18] VITALS: Ht 160 cm; Wt 76.2 kg
[~2024-03-18 09:32] MED LIST changes: +CYCL7.5T27 PO; +KETO10TA2 PO
[2024-03-18] MEDS: FAMOTIDINE 20MG VIAL IV ONE (10:42)
[2024-03-18] MEDS: Solu-medROL 125MG VIAL IVP ONE (10:42)
[2024-03-18] MEDS ORDERED: PRED20TA3 PO (12:34)
[2024-03-18 12:47] VITALS: BP 136/79; PULSE 72; RESP 17; O2SAT 99
== END 2024-03-18 12:49 | disposition home or self-care (01) ==
LOC: EDH 09:32
DX: T78.40XA Allergy, unspecified, initial encounter (principal); L29.9 Pruritus, unspecified; E11.9 Type 2 diabetes mellitus without complications; E78.00 Pure hypercholesterolemia, unspecified; I10 Essential (primary) hypertension; Z79.899 Other long term (current) drug therapy; Z90.710 Acquired absence of both cervix and uterus; Z98.890 Other specified postprocedural states; X58.XXXA Exposure to other specified factors, initial encounter
CPT/HCPCS: 99284; 96374; 96375; J3490; J2919

== ENCOUNTER 2024-06-02 11:30 | Inpatient (IN) | payer OTHER ==
[~2024-06-02] VITALS: Ht 160 cm; Wt 77.6 kg
[~2024-06-02 11:30] MED LIST changes: -KETO10TA2 PO; -LISI20TA24 PO; +MECL-302 PO; -NAPR-1192 PO; -PROM25TA7 PO
--- NOTE | 2024-06-02 11:49 | ERN ---
General Chief Complaint: Numbness Stated Complaint: RIGHT SIDED FACIAL DROOPING AND NUMBNESS Time Seen by MD: 11:33 History of Present Illness Initial Comments 8-year-old female who presents for right face droop in the eye in the lower face, in the right arm and leg feeling heavy with an abnormal sensation. Symptoms began on 06/01/2024 in the evening. She woke up again this morning and feels that it is getting worse. She has no motor dysfunction to the arms or the legs, she is ambulatory. She reports a sensation of heaviness on the right side of her body. She does have a slight facial droop on the right. She denies any recent systemic symptoms. Past medical history: Stroke x2 without any deficits, hypertension, diabetes, dyslipidemia Allergies: Coded Allergies: Influenza Virus Vaccines (Unverified Allergy, Severe, 05/13/24) No Known Drug Allergies (Verified Allergy, Unknown, 12/09/15) Home Meds Active Scripts Meclizine HCl (Meclizine HCl) 25 Mg Tablet, 25 MG PO TID PRN for DIZZINESS for 30 Days, #90 TAB Prov:MARKY CRESPO NP 05/13/24 Cyclobenzaprine HCl (Cyclobenzaprine HCl) 7.5 Mg Tablet, 7.5 MG PO DAILYDINNER for 7 Days, #14 TAB Prov:JONAH IVAN 12/15/23 Reported Medications Linaclotide (Linzess) 72 Mcg Capsule, 72 MCG PO DAILY, CAP 07/10/20 Icosapent Ethyl (Vascepa) 1 Gm Capsule, 1 GM PO DAILY, CAP 07/10/20 Vitamin B Complex (Vitamin B Complex) 1 Each Capsule, 1 EACH PO AM, CAP 07/09/20 Multivitamin (Multivitamins) 1 Each Tablet, 1 EACH PO AM, TAB 07/09/20 Cyanocobalamin (Vitamin B-12) (Vitamin B12) 5,000 Mcg Tab.rapdis, 50 MG PO AM, TAB 07/09/20 Clonazepam (Clonazepam) 0.5 Mg Tablet, 0.5 MG PO AD PRN for ANXIETY, TAB 11/28/19 Lisinopril (Lisinopril) 40 Mg Tablet, 40 MG PO AM, TAB 11/28/19 Past Medical History Past Medical History: Diabetes-Type II, High Cholesterol, Hypertension, Stroke Medical History Other: CVA 10/09 Past Surgical History: Hysterectomy, Other, Surgical History Other: BACK AND LEFT CLAVICLE SX Social History Social History: Negative, Lives with family ROS Dictation CONSTITUTIONAL: No chills, no fever, no weakness, no diaphoresis, no malaise. HEAD/FACE: No signs of trauma. EENT: No eye pain, no blurred vision, no tearing, no double vision, no ear pain, no ear discharge, no nose pain, no nasal congestion, no throat pain, no throat swelling, no mouth pain. RESPIRATORY: No cough, no orthopnea, no SOB, no stridor, no wheezing. CARDIOVASCULAR: No chest pain, no edema, no palpitations, no syncope. GASTROINTESTINAL/ABDOMINAL: No abdominal pain, no constipation, no diarrhea, no nausea, no vomiting. GENITOURINARY: No abnormal discharge, no dysuria, no frequent urination, no hematuria. No complaints of pain in the genitals. MUSCULOSKELETAL: No back pain, no gout, no joint pain, no joint swelling, no muscle pain, no muscle stiffness, no neck pain. INTEGUMENTARY: No change in color, no change in hair/nails, no dryness, no lesion, no lumps, no rash. NEUROLOGICAL/PSYCH right-sided heaviness sensation, right-sided facial droop HEMATOLOGIC/LYMPHATIC: Not anemic, no history of blood clots, no apparent bleeding, no bruising, glands not swollen. All Systems Negative, Except as Noted. Physical Exam Physical Exam Dictation VITAL SIGNS: Reviewed. GENERAL APPEARANCE: Alert, oriented x3, no acute distress HEAD AND FACE: Non-traumatic. EYES: PERRL, pink conjunctivas, eyelid no trauma, anterior chamber clear. EARS: Pinnas intact and no signs of trauma or erythema. Ear canals clear and no discharge. TMs no erythema. NOSE: No discharge, no bleeding. OROPHARYNX: Mouth normal, teeth no caries, tongue pink. Pharynx clear, no erythema. Tonsils no exudates, no abscesses noted. Mucous membrane moist. NECK: Supple, non-tender, no thyromegaly, no masses, no JVD, no bruits. BREAST: Deferred. CHEST: No tenderness, no crepitus, no paradoxical movement, no retractions. LUNGS: Clear, well-ventilated, symmetric, no rales, no wheezing, no rhonchi, no stridor, good breath sounds bilaterally. HEART: Regular rate, regular rhythm, no murmur, no gallops. VASCULAR: No peripheral edema. ABDOMEN: Soft, positive bowel sounds, nondistended, no guarding, nontender, no rebound, no masses no hepatomegaly, no splenomegaly, no Coronel's sign, no hernias. RECTAL: Deferred. GENITAL: Deferred. NEUROLOGICAL: Right-sided facial droop, slight, the right labial fold also of the right eye. See NIHSS MUSCULOSKELETAL: Neck nontender, full range of motion, back nontender, full range of motion. EXTREMITIES: Nontender, full range of motion. SKIN: Color pink, dry, no turgor, no rash, no lacerations, no abrasions, no contusions. LYMPHATICS: Deferred. Stroke Patient?: Ischemic Is Patient Candidate for t-PA?: No (Greater than 4.5 hours since onset of symptoms.) Did the Patient Receive t-PA?: No NIH STROKE SCALE: NIH STROKE SCALE Response (Comments) Value Level of Consciousness Alert 0 Ask patient month and their age Answers both correct 0 Command to open eyes, make fist and let go Obeys both correct 0 Best gaze (horizontal eye movement) Normal 0 Visual Field Testing No Visual Field Loss 0 Facial Paresis Partial Paralysis 2 Motor Function - Left Arm Normal 0 Motor Function - Right Arm Normal 0 Motor Function - Left Leg Normal 0 Motor Function - Right Leg Normal 0 Limb Ataxia No Ataxia 0 Sensory-pin prick to arms, legs, trunk and face Mild to Moderate Decrease 1 Best Language (describe picture, name items and read) No Aphasia 0 Dysarthria (read several words) Normal Articulation 0 Extinction and Inattention Normal 0 Total 3 Results Laboratory and Microbiology Lab and Micro Result Laboratory Tests Test 06/02/24 11:54 White Blood Count 9.7 K/uL (4.8-10.8) Red Blood Count 4.46 MIL/uL (4.00-5.50) Hemoglobin 14.8 g/dL (12.0-16.0) Hematocrit 43.3 % (36-48) Mean Corpuscular Volume 97.1 fL (79-99) Mean Corpuscular Hemoglobin 33.2 pg (27.0-33.0) H Mean Corpuscular Hemoglobin Concent 34.2 g/dL (32.0-36.0) Red Cell Distribution Width 13.2 % (11.0-15.5) Platelet Count 174 K/uL (130-400) Mean Platelet Volume 10.2 fL (7.5-10.5) Immature Granulocyte % (Auto) 0.4 % (0-1) Neutrophils (%) (Auto) 70.2 % (40.0-77.0) Lymphocytes (%) (Auto) 20.8 % (21.0-51.0) L Monocytes (%) (Auto) 4.7 % (3.0-13.0) Eosinophils (%) (Auto) 3.8 % (0.0-8.0) Basophils (%) (Auto) 0.1 % (0.0-5.0) Neutrophils # (Auto) 6.8 K/uL (1.8-7.7) Lymphocytes # (Auto) 2.0 K/uL (1.0-4.8) Monocytes # (Auto) 0.5 K/uL (0.1-1.0) Eosinophils # (Auto) 0.37 K/uL (0.00-0.70) Basophils # (Auto) 0.01 K/uL (0.00-0.20) Absolute Immature Granulocyte (auto 0.04 K/uL (0-1) Nucleated Red Blood Cells 0.0 % (0.0-0.19) Prothrombin Time 10.0 SEC (9.6-11.6) Prothromb Time International Ratio <= 0.93 (0.85-1.15) Activated Partial Thromboplast Time 26.1 SEC (26.3-35.5) L Sodium Level 142 mmol/L (136-145) Potassium Level 4.0 mmol/L (3.5-5.1) Chloride Level 103 mmol/L (101-111) Carbon Dioxide Level 31 mmol/L (21-32) Blood Urea Nitrogen 12 mg/dL (7-18) Creatinine 0.6 mg/dL (0.5-1.0) Glomerular Filtration Rate Calc 99 mL/min (>90) Whole Blood Glucose 93 MG/DL (70-110) Random Glucose 91 mg/dL (70-105) Total Calcium 9.3 mg/dL (8.5-10.1) FAUSTINA GANDHI CC: R sided facial droop, R arm & leg "tingling" Onset: 06/01/24 afternoon Historian: patient Comorbidities: hx previous stroke x 2 w/o deficits, HTN, DM, DLD Initial concern for stroke vs ACS, vs other NIHSS: 3. 2 for facial droop, 1 for sensation. Low suspicion for LVO. Symptoms presents >4.5 hours, began 12 hours ago. Not a candidate for thrombolytics. Patient taken to CT scanner for CT head without contrast. CT head (per my independent interpretation): no acute brain bleed CXR (independently interpreted by me): no effusions, no cardiomegaly EKG (independepntly interpreted by me): NSR, rate 88, normal axis, good RWP, intervals WNL. No STEMI. Labs (ordered & interpreted by me): CBC normal. Coags normal. BMP normal. Patient given aspirin 324mg here in ED. Will admit for stroke work up. Consultation: hospitalist for admission. REASON: stroke sympotoms ORDERING PHYSICIAN: RAMSES KAUFMAN DO PROCEDURE: HEAD WO - CT HEAD/BRAIN W/O CONTRAST Exam: NONCONTRAST CT BRAIN REASON: stroke sympotoms. COMPARISON: None. TECHNIQUE: Images are obtained from vertex to the skull base. The exam was performed without IV contrast. FINDINGS: There is normal appearing brain parenchyma. There are no focal mass lesions. There is is no evidence of intracranial hemorrhage or acute stroke. Ventricles and sulci appear normal. Posterior fossa and brainstem structures are unremarkable. Paranasal sinuses and remaining extracranial soft tissues appear normal as well. IMPRESSION: 1. Normal noncontrast CT brain. CT was performed with one or more following dose reduction techniques: automated exposure control, adjustment of the mA and kv according to patient's size, or use of a iterative reconstruction technique. REASON: stroke symptoms ORDERING PHYSICIAN: RAMSES KAUFMAN DO ED Course Orders Procedure Category Date Status Time Cbc With Differential LAB 06/02/24 In Process 11:33 Prothrombin Time With LAB 06/02/24 Complete INR 11: Partial LAB 06/02/24 Complete Thromboplastin Time 11:33 Ct Head/Brain W/O CT 06/02/24 Resulted Contrast 11:33 Chest 1vw RAD 06/02/24 Resulted 11:33 12 Lead Ekg Tracing- EKG 06/02/24 Logged Technical 11:33 Creatine Kinase, Total LAB 06/02/24 In Process 11:33 Ldl Direct LAB 06/02/24 In Process 11:33 Troponin I High LAB 06/02/24 In Process Sensitivity 11:33 Urinalysis Profile LAB 06/02/24 Logged 11:33 B-Type Natriuretic LAB 06/02/24 In Process Peptide 11:33 Bedside Glucose CPOE 06/02/24 Transmitted Fingerstick 11:33 Basic Metabolic Panel LAB 06/02/24 In Process 11:33 Aspirin 325mg Tab PHA 06/02/24 Verified (Aspirin 325mg Tab) 13:00 Vital Signs Date Time Temp Pulse Resp B/P (MAP) Pulse Ox O2 Delivery O2 Flow Rate FiO2 06/02/24 11:58 98.4 84 18 127/72 98 Room Air* 0 21 06/02/24 11:33 98.4 89 18 144/88 99 Room Air 0 DX & DISP Disposition: Inpatient Departure Impression: Primary Impression: Stroke-like symptoms Critical Time: 30 minutes (Critical Care Procedure NoteAuthorized and Performed by: meTotal critical care time: Approximately 36 minutesDue to a high probability of clinically significant, life threatening deterioration, the patient required my highest level of preparedness to intervene emergently and I personally spent this critical care time directly and personally managing the patient. This critical care time included obtaining a history; examining the patient; pulse oximetry; ordering and review of studies; arranging urgent treatment with development of a management plan; evaluation of patient's response to treatment; frequent reassessment; and, discussions with other providers.This critical care time was performed to assess and manage the high probability of imminent, life-threatening deterioration that could result in multi-organ failure. It was exclusive of separately billable procedures and treating other patients and teaching time.Please see MDM section and the rest of the note for further information on patient assessment and treatment.) Condition: Stable Referrals: ADAM ROMERO JR, MD (PCP) RAMSES KAUFMAN DO Jun 02, 2024 11:49
--- NOTE | 2024-06-02 12:11 | HMCIMG ---
CHEST 1VW REASON: stroke symptoms COMPARISON: 05/12/2024 FINDINGS: Single view of the chest was obtained. Lungs are clear. Heart size is normal. There is no pulmonary vascular congestion. Mediastinum and bony thorax appear unremarkable. There is plate and screw fixation of the right midclavicle, hardware appears intact. IMPRESSION: 1. No acute finding, no change.
--- NOTE | 2024-06-02 12:13 | HMCIMG ---
Exam: NONCONTRAST CT BRAIN REASON: stroke sympotoms. COMPARISON: None. TECHNIQUE: Images are obtained from vertex to the skull base. The exam was performed without IV contrast. FINDINGS: There is normal appearing brain parenchyma. There are no focal mass lesions. There is is no evidence of intracranial hemorrhage or acute stroke. Ventricles and sulci appear normal. Posterior fossa and brainstem structures are unremarkable. Paranasal sinuses and remaining extracranial soft tissues appear normal as well. IMPRESSION: 1. Normal noncontrast CT brain. CT was performed with one or more following dose reduction techniques: automated exposure control, adjustment of the mA and kv according to patient's size, or use of a iterative reconstruction technique.
[2024-06-02 12:43] LABS: BASOPHILS # (AUTO) 0.01 K/uL (0.00-0.20); BASOPHILS % (AUTO) 0.1 % (0.0-5.0); EOSINOPHILS # (AUTO) 0.37 K/uL (0.00-0.70); EOSINOPHILS % (AUTO) 3.8 % (0.0-8.0); HEMATOCRIT 43.3 % (36-48); IMMATURE GRANULOCYTE ABSOLUTE 0.04 K/uL (0-1); LYMPHOCYTES % (AUTO) 20.8 % (21.0-51.0); MEAN CORPUSCULAR HEMOGLOBIN 33.2 pg (27.0-33.0); MEAN CORPUSCULAR HGB CONC 34.2 g/dL (32.0-36.0); MEAN CORPUSCULAR VOLUME 97.1 fL (79-99); MONOCYTES # (AUTO) 0.5 K/uL (0.1-1.0); MONOCYTES % (AUTO) 4.7 % (3.0-13.0); NEUTROPHILS # (AUTO) 6.8 K/uL (1.8-7.7); NEUTROPHILS % (AUTO) 70.2 % (40.0-77.0); PLATELET COUNT (AUTO) 174 K/uL (130-400); RED BLOOD CELL COUNT(AUTO) 4.46 MIL/uL (4.00-5.50); RED CELL DISTRIBUTION WIDTH 13.2 % (11.0-15.5); WHITE BLOOD COUNT (AUTO) 9.7 K/uL (4.8-10.8)
[2024-06-02 12:51] LABS: INR <= 0.93 (0.85-1.15)
[2024-06-02 12:53] LABS: PARTIAL THROMBOPLASTIN TIME 26.1 SEC (26.3-35.5)
[2024-06-02 12:54] LABS: CREATININE 0.6 mg/dL (0.5-1.0)
[2024-06-02 13:04] LABS: B-TYPE NATRIURETIC PEPTIDE 13 pg/mL (0-100)
[2024-06-02] MEDS: ASPIRIN 325MG TAB PO ONE (13:26)
[2024-06-02] MEDS ORDERED: polyETHYLene GLYCol 3350 17 GM POWD.PACK PO PRN (14:00)
[2024-06-02] MEDS ORDERED: PoTASSium chloRIDE 20MEQ/100ML 100 ML IV PRN ×2 (14:00)
[2024-06-02] MEDS ORDERED: acetaMINOPHEN 325 MG TAB PO PRN (14:00)
[2024-06-02] MEDS ORDERED: NITROGLYCERIN 0.4 MG SL TAB SL PRN (14:00)
[2024-06-02] MEDS ORDERED: doCUSate SODIUM 100 MG CAP PO PRN (14:00)
[2024-06-02] MEDS ORDERED: hydrALAZine 25MG TABLET PO PRN (14:00)
[2024-06-02] MEDS ORDERED: guaiFENesin SUGAR-FREE 100 MG/5 ML UDCUP PO PRN (14:00)
[2024-06-02] MEDS ORDERED: PoTASSium chl 10% ELIXIR 20MEQ 20 MEQ/15 ML UDCUP PO PRN (14:00)
[2024-06-02] MEDS ORDERED: LACTULOSE 20 GM/30 ML UDCUP PO PRN (14:00)
[2024-06-02] MEDS ORDERED: MAGNESIUM 2GM PREMIX 50ML 50 ML IV PRN (14:00)
[2024-06-02] MEDS ORDERED: PoTASSium chloRIDE 20MEQ ER 20 MEQ ERTAB PO PRN (14:00)
[2024-06-02] MEDS: ondanSETRON 4MG INJ IV PRN (14:31)
[2024-06-02] MEDS: acetaMINOPHEN 325 MG TAB PO PRN (14:32)
[2024-06-02 15:09] LABS: APPEARANCE,URINE CLEAR (CLEAR); BILIRUBIN,URINE NEGATIVE (NEGATIVE); COLOR,URINE COLORLESS (YELLOW); GLUCOSE, URINE (UA) NEGATIVE (NEGATIVE); KETONES,URINE NEGATIVE (NEGATIVE); LEUKOCYTE ESTERASE ,URINE NEGATIVE Leu/uL (NEGATIVE); NITRATE,URINE NEGATIVE (NEGATIVE); OCCULT BLOOD,URINE NEGATIVE (NEGATIVE); PROTEIN,URINE NEGATIVE (NEGATIVE); UROBILINOGEN,URINE 0.2 mg/dL (0.2-1.0)
[2024-06-02 15:26] LABS: ADD UA MICROSCOPIC YES
[2024-06-02 15:27] LABS: BACTERIA,URINE RARE /HPF (None Seen); MUCUS,URINE RARE LPF (None Seen); SQUAMOUS EPITHELIAL CELL,UR RARE /HPF (0-2)
--- NOTE | 2024-06-02 15:39 | EKG ---
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
[2024-06-02] MEDS: INSULIN humuLIN R 100 UNIT/ML 3ML SQ SCH (16:01)
[2024-06-02] MEDS ORDERED: traMADol HCL 50 MG TABLET PO SCH (16:30)
[2024-06-02] MEDS: traMADol HCL 50 MG TABLET PO PRN (16:38)
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
--- NOTE | 2024-06-02 18:05 | NUR ---
3RD ATTEMPT FOR CT SCAN, PT REFUSING CT SCANS AT THIS TIME. RN IDA AWARE OF PT DECISION.
[2024-06-02] MEDS: FAMOTIDINE 20MG VIAL IV SCH (21:00)
[2024-06-02 22:05] VITALS: BP 133/61; PULSE 67; RESP 18; TEMP 97.7; O2SAT 98
[2024-06-03] VITALS (7 sets, daily range): BP systolic 95–114; BP diastolic 54–77; PULSE 71–79; RESP 17–20; TEMP 97.5–98.3; O2SAT 94–98
[2024-06-03 05:43] LABS: EOSINOPHILS # (AUTO) 0.32 K/uL (0.00-0.70); HEMATOCRIT 38.7 % (36-48); IMMATURE GRANULOCYTE ABSOLUTE 0.02 K/uL (0-1); LYMPHOCYTES # (AUTO) 2.2 K/uL (1.0-4.8); LYMPHOCYTES % (AUTO) 35.1 % (21.0-51.0); MEAN CORPUSCULAR HEMOGLOBIN 32.6 pg (27.0-33.0); MEAN CORPUSCULAR HGB CONC 32.8 g/dL (32.0-36.0); MEAN CORPUSCULAR VOLUME 99.5 fL (79-99); MONOCYTES # (AUTO) 0.4 K/uL (0.1-1.0); MONOCYTES % (AUTO) 6.8 % (3.0-13.0); NEUTROPHILS # (AUTO) 3.4 K/uL (1.8-7.7); NEUTROPHILS % (AUTO) 52.8 % (40.0-77.0); PLATELET COUNT (AUTO) 135 K/uL (130-400); RED BLOOD CELL COUNT(AUTO) 3.89 MIL/uL (4.00-5.50); RED CELL DISTRIBUTION WIDTH 13.2 % (11.0-15.5); WHITE BLOOD COUNT (AUTO) 6.4 K/uL (4.8-10.8)
[2024-06-03 05:57] LABS: HEMOGLOBIN A1C 5.4 % (4.0-6.0)
[2024-06-03 06:12] LABS: CREATININE 0.5 mg/dL (0.5-1.0); MAGNESIUM 2.1 mg/dL (1.80-2.40); POTASSIUM 3.9 mmol/L (3.5-5.1); THYROID STIMULATING HORMONE 0.72 uIU/mL (0.36-3.74)
--- NOTE | 2024-06-03 09:03 | HMCIMG ---
Exam: Noncontrast MRI brain REASON: right hemiparesis COMPARISON: There are no prior MRI scans available for comparison. TECHNIQUE: Routine cerebral imaging protocol was performed. Exam was performed without IV contrast. CONTRAST: None FINDINGS: There is a small focal area of encephalomalacia present anteriorly in the right insular cortex consistent with a remote ischemic event. There is normal appearing brain parenchyma. There are no focal mass lesions. There are no areas of abnormal signal intensity. Ventricles and sulci appear normal. Posterior fossa and brainstem structures appear unremarkable. There is no evidence of intracranial hemorrhage. Diffusion-weighted images are negative for an acute ischemic process. There are no abnormal fluid collections. Extracranial soft tissues appear normal as well. IMPRESSION: 1. Small old stroke in the right insular cortex. 2. Negative diffusion weighted images, there is no evidence of acute ischemic event, there is no intracranial hemorrhage.
--- NOTE | 2024-06-03 09:10 | HMCIMG ---
MR ANGIO NECK WO CON REASON: right hemiparesis COMPARISON: None TECHNIQUE: Routine images were acquired using acquisition of flow sensitive gradient recalled source data followed by maximum pixel intensity projection technique. FINDINGS: Common carotid arteries appear normal. Both carotid bifurcations are unremarkable. There is no evidence of plaque or focal stenosis. Internal carotid arteries appear unremarkable. There is a dominant left and a smaller right vertebral artery, both are patent to the skull base. IMPRESSION: 1. Normal MR angiography of the neck.
--- NOTE | 2024-06-03 09:12 | HMCIMG ---
MRA COW/BRAIN-[place] REASON: right hemiparesis TECHNIQUE: Routine MRA sequences were generated with gradient-recalled source data. FINDINGS: There is a 5 mm vascular structure extending superiorly from the distal M1 segment of the right middle cerebral artery, consistent with aneurysm. The anterior middle cerebral arteries appear otherwise unremarkable. There is no evidence of atherosclerotic change or focal vessel occlusion. Visualized portion of the internal carotid arteries appear normal. Posterior fossa vessels appear unremarkable as well. IMPRESSION: 1. Findings consistent with a 5 mm aneurysm extending superiorly from the distal M1 segment right middle cerebral artery. 2. Otherwise unremarkable MR angiography.
--- NOTE | 2024-06-03 13:09 | PN ---
[facility] PROGRESS NOTE Date Patient Seen: Jun 03, 2024 Time of Visit: 13:07 Supervising Physician: [Dr. Sorenson] Primary Care Physician: Bridgette Ku MD- [facility] Outpatient Specialists: DAR Inpatient Consults: Dr. Llamas PROBLEM LIST: Acute right-sided hemiparesis - can not rule out acute CVA Severe headache with back of head pain Hyperlipidemia Obesity BMI 31 Hx. Vertigo, CVA, HTN INTERVAL HISTORY: [She was admitted for evaluation of new onset right-sided weakness. Per ED report, patient had right-sided facial droop and abnormal heavy sensation to right arm and right leg. Her NIH were was three on admission she was given 324 mg of aspirin in the ED. her labs including CBC and BNP were unremarkable, INR of 0.93 and TSH is 0.72. Her UA on admission is negative. CT of the head was negative for any acute findings. She continues with moderate to severe headache pain, currently on tramadol. She continues with R-sided facial droop. Her MRA brain shows a 5mm aneurysm to R-MCA. Neuro is recommending transfer to [facility] for cerebral angiogram and possible intervention.] REVIEW OF SYSTEMS: General: No Fever, No Chills, No Night Sweats, No Fatigue, No Malaise, No Appetite HEENT: No Head Aches, No Visual Changes, No Eye Pain, No Ear Pain, No Dysphasia, No Sinus Congestion, No Post Nasal Drip, No Sore Throat Pulmonary: No Dyspnea; No Cough, No Pleuritic Chest Pain Cardiovascular: No: Chest Pain, Palpitations, Orthopnea, Paroxysmal Noc. Dyspnea, Edema, Lt Headedness Gastrointestinal: No: Nausea, Vomiting, Abdominal Pain, Diarrhea, Constipation, Melena, Hematochezia Genitourinary: No Dysuria, No Frequency, No Incontinence, No Hematuria, No Retention Musculoskeletal: No: other, neck pain, shoulder pain, arm pain, back pain, hand pain, leg pain, foot pain Skin: No Urticaria, No Rash Neurological: yes: right sided weakness, right sided numbness, No Incoordination, Change in speech, Confusion, Seizures PHYSICAL EXAM: GENERAL: alert, awake oriented x 3. Apprehensive HEENT: EOMI, Sclera non icteric, moist mucosa NECK: Supple, no JVD, trachea midline LUNGS: Clear breath sounds bilaterally. No wheezes HEART: Regular rate and rhythm. Normal S1 and S2, without murmurs ABD: Abdomen soft, nontender. Bowel sounds present EXT: No clubbing cyanosis or edema NEURO: Alert and oriented to person, follows commands. No weakness but mild numb to right arm and leg. Vital Signs (last 8hr) Date Time Temp Pulse Resp B/P (MAP) Pulse Ox O2 Delivery O2 Flow Rate FiO2 06/03/24 11:35 98.1 79 19 111/77 99 Room Air 21 06/03/24 08:04 98.1 73 18 95/54 97 Room Air 21 LABS: Hematology Labs: Test 06/03/24 04:15 Range/Units White Blood Count 6.4 # 4.8-10.8 K/uL Red Blood Count 3.89 L 4.00-5.50 MIL/uL Hemoglobin 12.7 12.0-16.0 g/dL Hematocrit 38.7 36-48 % Mean Corpuscular Volume 99.5 H 79-99 fL Mean Corpuscular Hemoglobin 32.6 27.0-33.0 pg Mean Corpuscular Hemoglobin Concent 32.8 32.0-36.0 g/dL Red Cell Distribution Width 13.2 11.0-15.5 % Platelet Count 135 130-400 K/uL Mean Platelet Volume 10.0 7.5-10.5 fL Immature Granulocyte % (Auto) 0.3 0-1 % Neutrophils (%) (Auto) 52.8 40.0-77.0 % Lymphocytes (%) (Auto) 35.1 21.0-51.0 % Monocytes (%) (Auto) 6.8 3.0-13.0 % Eosinophils (%) (Auto) 5.0 0.0-8.0 % Basophils (%) (Auto) 0.0 0.0-5.0 % Neutrophils # (Auto) 3.4 1.8-7.7 K/uL Lymphocytes # (Auto) 2.2 1.0-4.8 K/uL Monocytes # (Auto) 0.4 0.1-1.0 K/uL Eosinophils # (Auto) 0.32 0.00-0.70 K/uL Basophils # (Auto) 0.00 0.00-0.20 K/uL Absolute Immature Granulocyte (auto 0.02 0-1 K/uL Nucleated Red Blood Cells 0.0 0.0-0.19 % Chemistry Labs: Test 06/03/24 10:43 06/03/24 04:15 06/02/24 11:54 Range/Units Whole Blood Glucose 91 70-110 MG/DL Sodium Level 141 136-145 mmol/L Potassium Level 3.9 3.5-5.1 mmol/L Chloride Level 106 101-111 mmol/L Carbon Dioxide Level 33 H 21-32 mmol/L Blood Urea Nitrogen 12 7-18 mg/dL Creatinine 0.5 0.5-1.0 mg/dL Glomerular Filtration Rate Calc 103 >90 mL/min Random Glucose 75 70-105 mg/dL Hemoglobin A1c 5.4 4.0-6.0 % Estimated Average Glucose (eAG) 108 70-126 mg/dL Total Calcium 8.8 8.5-10.1 mg/dL Magnesium Level 2.10 1.80-2.40 mg/dL Thyroid Stimulating Hormone (TSH) 0.72 # 0.36-3.74 uIU/mL Total Creatine Kinase 62 # 21-232 U/L Troponin I High Sensitivity < 4 L 4-50 ng/L B-Type Natriuretic Peptide 13 0-100 pg/mL LDL Cholesterol 103 H 0-99 mg/dL Coagulation Labs: Test 06/02/24 11:54 Range/Units Prothrombin Time 10.0 9.6-11.6 SEC Prothromb Time International Ratio <= 0.93 0.85-1.15 Activated Partial Thromboplast Time 26.1 L 26.3-35.5 SEC DIAGNOSTICS / RADIOLOGY RESULTS: [MRA COW/BRAIN-[place] REASON: right hemiparesis TECHNIQUE: Routine MRA sequences were generated with gradient-recalled source data. FINDINGS: There is a 5 mm vascular structure extending superiorly from the distal M1 segment of the right middle cerebral artery, consistent with aneurysm. The anterior middle cerebral arteries appear otherwise unremarkable. There is no evidence of atherosclerotic change or focal vessel occlusion. Visualized portion of the internal carotid arteries appear normal. Posterior fossa vessels appear unremarkable as well. IMPRESSION: 1. Findings consistent with a 5 mm aneurysm extending superiorly from the distal M1 segment right middle cerebral artery. 2. Otherwise unremarkable MR angiography.] PLAN NEURO: Minimize central acting medications as possible. Maintain fall precautions, adequate lighting during the day Neuro checks Consult to neurology MRI of head, MRA neck and brain PULMONARY: Supplemental 02 as needed. Maintain aspiration precautions at all times CARDIOVASCULAR: Follow hemodynamics. Vital signs per facility protocol GI & NUTRITION: Continue with nutritional support. Continue stool softeners and laxatives as needed. KIDNEYS & ELECTROLYTES: Strict monitoring of intake, output and overall fluid balance. Avoid nephrotoxic medications to the extent possible. Medications to be dosed according to renal function. Monitor electrolytes and replace as needed ENDOCRINE: Maintain blood glucose between 100-180 at all times. Hypoglycemia protocol in place INFECTIOUS DISEASE: Trend temperature, WBC and procalcitonin level Follow cultures, deescalate antibiotics as soon as possible. Panculture if new onset fever ONCOLOGY/HEMATOLOGY/COAGULATION: Monitor for s/s of bleeding Monitor hemoglobin, coagulation studies as needed SKIN: Pressure ulcer prevention per facility protocol Specialty mattress ORTHO/REHAB: Continue PT/OT Prophylaxis: Continue GI and DVT prophylaxis Code Status: Full Resuscitation Disposition: TBD Other: Total patient care time exceeds 52 minutes excluding all procedures. KENJI GARNICA Jun 03, 2024 13:09
--- NOTE | 2024-06-03 15:22 | NUR ---
NEW [place] [facility] [place] PER DR SANDERSON. CHARGE S OM RN NOTIFIED AND ORDER FAXED TO [facility].
--- NOTE | 2024-06-03 15:58 | CONS ---
CONSULTATION NOTE Date of Service: Jun 03, 2024 Reason for Consultation: Evaluation of right upper extremity weakness Requesting Physician: Hospitalist HISTORY OF PRESENT ILLNESS: Ms. Alejandre is a 68 years old right-handed lady who has a past medical history remarkable for essential hypertension, dyslipidemia, obesity, to ischemic strokes who was admitted for evaluation and management of right upper extremity weakness. The patient states having a previous history of two strokes 115 years ago which was characterized by difficulty speaking. The 2nd stroke occurred in September 2022 almost two years ago, and presented with slurred speech. Ms. Alejandre reports noticing a droopy eye yesterday around 10:30 a.m. and feeling dizzy. These symptoms lasted for hours before returning to normal raising the possibility of a transient ischemic attack while the patient was seen in the e mergency room. The patient had an MRI of the brain without contrast that was negative for stroke. An MRA head and neck demonstrated an incidental right MCA 5 mm aneurysm. As stated above the patient has a previous history of essential hypertension dyslipidemia and anxiety. She stopped smoking 20 years ago but recently she started smoking again. The patient lost her son and has been more anxious lately. The patient's mother also was diagnosed with cerebral aneurysm. REVIEW OF SYSTEMS CONSTITUTIONAL: Denies fever, chills, or fatigue. HEAD/FACE: No signs of trauma. EENT: Denies eye pain, blurred vision, double vision, or light sensitivity. RESPIRATORY: Denies shortness of breath, cough, wheezing CARDIOVASCULAR: Denies chest pain, palpitation, syncope GASTROINTESTINAL/ABDOMINAL: Denies abdominal pain, constipation, diarrhea, nausea or vomiting GENITOURINARY: Denies dysuria or hematuria. MUSCULOSKELETAL: Denies joint pain, tenderness, or trauma. INTEGUMENTARY: Denies rash or itchiness NEUROLOGICAL/PSYCH: Right upper extremity weakness PAST MEDICAL HISTORY: Strokes x2, essential hypertension, dyslipidemia, obesity, anxiety, depression PAST SURGICAL HISTORY: Noncontributory PAST SOCIAL HISTORY: Positive tobacco abuse no alcohol recreational drug abuse FAMILY HISTORY: No family history of stroke or seizures Coded Allergies: Influenza Virus Vaccines (Unverified Allergy, Severe, 05/13/24) No Known Drug Allergies (Verified Allergy, Unknown, 12/09/15) PHYSICAL EXAM Mental status: The patient is alert, attentive, and oriented. Speech is clear and fluent with good repetition, comprehension, and naming. Pt recalls 3/3 objects at 5 minutes. Cranial nerves: CN II: Visual nava are full to confrontation. CN III, IV, : At primary gaze, there is no eye deviation. CN V: Facial sensation is intact to pinprick in all 3 divisions bilaterally. Corneal responses are intact. CN VII: Face is symmetric with normal eye closure and smile. CN VIII: Hearing is normal to rubbing fingers CN IX, X: Palate elevates symmetrically. Phonation is normal. CN XI: Head turning and shoulder shrug are intact CN XII: Tongue is midline with normal movements and no atrophy. Motor: There is no pronator drift of out-stretched arms. Muscle bulk and tone are normal. Strength is full bilaterally. Reflexes: Reflexes are 2+ and symmetric at the biceps, triceps, knees, and ankles. Plantar responses are flexor. Sensory: Light touch, pinprick, position sense, and vibration sense are intact in fingers and toes. Coordination: Rapid alternating movements and fine finger movements are intact. There is no dysmetria on [id number] and cfod-flci-[id number]. There are no abnormal or extraneous movements. Romberg is absent. Gait/Stance: Not evaluated NIH stroke scale: 0 Vital Sign (Last 24 Hours) 06/02/24 06/03/24 22:05 11:35 Temp 98.1 Pulse 79 Resp 19 B/P (MAP) 111/77 Pulse Ox 99 O2 Delivery Room Air O2 Flow Rate 0 FiO2 21 Intake & Output (last 24hrs) 06/02/24 06/02/24 06/03/24 15:00 23:00 07:00 Intake Total 0 ml Output Total 0 ml Balance 0 ml LABS: Laboratory: Test 06/03/24 10:43 06/03/24 04:15 06/02/24 14:20 06/02/24 11:54 Range/Units Whole Blood Glucose 91 70-110 MG/DL White Blood Count 6.4 # 4.8-10.8 K/uL Red Blood Count 3.89 L 4.00-5.50 MIL/uL Hemoglobin 12.7 12.0-16.0 g/dL Hematocrit 38.7 36-48 % Mean Corpuscular Volume 99.5 H 79-99 fL Mean Corpuscular Hemoglobin 32.6 27.0-33.0 pg Mean Corpuscular Hemoglobin Concent 32.8 32.0-36.0 g/dL Red Cell Distribution Width 13.2 11.0-15.5 % Platelet Count 135 130-400 K/uL Mean Platelet Volume 10.0 7.5-10.5 fL Immature Granulocyte % (Auto) 0.3 0-1 % Neutrophils (%) (Auto) 52.8 40.0-77.0 % Lymphocytes (%) (Auto) 35.1 21.0-51.0 % Monocytes (%) (Auto) 6.8 3.0-13.0 % Eosinophils (%) (Auto) 5.0 0.0-8.0 % Basophils (%) (Auto) 0.0 0.0-5.0 % Neutrophils # (Auto) 3.4 1.8-7.7 K/uL Lymphocytes # (Auto) 2.2 1.0-4.8 K/uL Monocytes # (Auto) 0.4 0.1-1.0 K/uL Eosinophils # (Auto) 0.32 0.00-0.70 K/uL Basophils # (Auto) 0.00 0.00-0.20 K/uL Absolute Immature Granulocyte (auto 0.02 0-1 K/uL Nucleated Red Blood Cells 0.0 0.0-0.19 % Sodium Level 141 136-145 mmol/L Potassium Level 3.9 3.5-5.1 mmol/L Chloride Level 106 101-111 mmol/L Carbon Dioxide Level 33 H 21-32 mmol/L Blood Urea Nitrogen 12 7-18 mg/dL Creatinine 0.5 0.5-1.0 mg/dL Glomerular Filtration Rate Calc 103 >90 mL/min Random Glucose 75 70-105 mg/dL Hemoglobin A1c 5.4 4.0-6.0 % Estimated Average Glucose (eAG) 108 70-126 mg/dL Total Calcium 8.8 8.5-10.1 mg/dL Magnesium Level 2.10 1.80-2.40 mg/dL Thyroid Stimulating Hormone (TSH) 0.72 # 0.36-3.74 uIU/mL Urine Color COLORLESS YELLOW Urine Appearance CLEAR CLEAR Urine pH 7.0 5.0-8.0 Urine Specific [place] 1.005 1.001-1.031 Urine Protein NEGATIVE NEGATIVE mg/dL Urine Glucose (UA) NEGATIVE NEGATIVE mg/dL Urine Ketones NEGATIVE NEGATIVE mg/dL Urine Occult Blood NEGATIVE NEGATIVE Urine Nitrate NEGATIVE NEGATIVE Urine Bilirubin NEGATIVE NEGATIVE mg/dL Urine Urobilinogen 0.2 0.2-1.0 mg/dL Urine Leukocyte Esterase NEGATIVE NEGATIVE Karlos/uL Urine RBC None 0-1 /HPF Urine WBC 2-5 H 0-1 /HPF Urine Squamous Epithelial Cells RARE 0-2 /HPF Urine Bacteria RARE None Seen /HPF Prothrombin Time 10.0 9.6-11.6 SEC Prothromb Time International Ratio <= 0.93 0.85-1.15 Activated Partial Thromboplast Time 26.1 L 26.3-35.5 SEC Total Creatine Kinase 62 # 21-232 U/L Troponin I High Sensitivity < 4 L 4-50 ng/L B-Type Natriuretic Peptide 13 0-100 pg/mL LDL Cholesterol 103 H 0-99 mg/dL DIAGNOSTICS / RADIOLOGY: MRI brain w/o contrast: neg for stroke MRA head: right MCA 5 mm aneurysm. ASSESSMENT / PLAN: 1).- Transient ischemic attack - the patient presented with a right upper extremity heaviness weakness that completely resolved while the patient was in the emergency room. The patient's symptoms have resolved at this time. MRI of the brain without contrast significant stroke. MRA with a right aneurysm. Pt has HTN, HLD obesity as part of the risk for strokes. The patient has previous strokes in the past. Currently the patient is a tobacco abuser and a educated the patient about stopping. Blood pressure goals less than 130/80 mm of mercury LDL goal less than 70 hemoglobin A1c goal less than 1%. Patient was educated about losing weight and monitoring diet. Okay to continue aspirin 81 mg p.o. daily and atorvastatin as initiated by primary team. 2).-Right MCA aneurysm - the patient had an incidental right MCA 5 mm aneurysm. The patient will be transferred to [facility] under the care of Dr. Gill her son for the cerebral angiography and evaluation and possible intervention. For now continue blood pressure goal less than 130/80 mm of mercury. Thank you for your consultation. I will sign off. MANDIE AVALOS MD Jun 03, 2024 15:58
--- NOTE | 2024-06-03 16:00 | NUR ---
[employer] REQUESTED COPY OF FACESHEET FOR TRANSFER INITIATION PAPERWORK
--- NOTE | 2024-06-03 17:25 | NUR ---
TRANSFER FOR NEUROLOGY CEREBRAL ANGIOGRAPY CALL SUBMITTED TO [facility] [place] INTAKE NURSE [place]KA BY LORRAINE PARKS PENDING ACCEPTANCE REPORT GIVEN TO INCOMING GROUP LEADER SEMICONDUCTOR TESTING . DALTON MITCHELL
[2024-06-03] MEDS ORDERED: mecliZINE HCL 25 MG TABLET PO PRN (19:30)
[2024-06-03] MEDS: atorVAStatin 40 MG TABLET PO SCH (20:58)
--- NOTE | 2024-06-03 23:15 | NUR ---
REPORT: PT ACCEPTED AND PENDING TRANSFER TO [facility] IN ROOM 1314. SPOKE WITH CONRADO AT [facility] AND GAVE REPORT. PT TO BE TRANSFERRED FOR HIGHER LEVEL OF CARE AND NEEDING CEREBRAL ANGIOGRAPHY.
--- NOTE | 2024-06-03 23:27 | NUR ---
EMS: EMS TRANSFER SERVICE CALLED AT THIS TIME FOR TRANSFER TO [facility].
[2024-06-04] VITALS: BP 101/53; PULSE 65; RESP 20; TEMP 97.8
--- NOTE | 2024-06-04 00:45 | HMCSR ---
APPROVED REPORT EXAM: Two-dimensional and M-mode echocardiogram with Doppler and color Doppler. Study Details: Hx: Tabacco use, CVA x2 with partial dysarthria and smoker, HTN INDICATION ICD: Evaluate systolic and valvular function 2D Dimensions RVDd3.3 cmLVEF(%)64.4 (>50%)LVED Vol(simp.)103.0 mL IVSd0.7 (0.7-1.1cm)FS(%)35 %LVES Vol(simp.)60.0 mL LVDd5.1 (3.8-5.6cm)LA (2D)4.0 (1.6-4.0cm)LVEF(%, simp.)42 % PWd0.9 (0.7-1.1cm)Ao Root(2D)3.6 (2.0-3.7cm)LA ESV INDEX (4CH)27.10 mL/m2 IVSs1.2 cmLVOT diam2.2 (1.8-2.4cm)LA ESV INDEX (2CH)30.40 mL/m2 LVDs3.3 (2.5-4.0cm)LA ESV INDEX (BP)30.70 mL/m2 PWs1.7 cm Deformation Strain Apical 421.0 % Apical 223.0 % Apical 322.0 % Global Eosyub16.0 % M-Mode Dimensions EPSS0.8 cm LA (MM)4.4 (1.6-4.0cm) Ao Root(MM)2.7 (2.0-3.7cm) Aortic Valve AoV VTI0.3 mAo Mean GR4.0 mmHgLVOT VTI0.21 m JASMYN (VMAX)3.0 cm2AVA (VTI) 3.0 cm2 Mitral Valve MV E Vmax54.3 cm/sDECEL Zayc358 ms MV A Vmax56.8 cm/sP 1/2 T90 ms E/A ratio1.0MVA (PHT)2.4 cm2 MR Max PG68 mmHg TDI E/E' Vbpxqf65.1E/E' Lateral9.2 Medial E' Peak V3.60 cm/sLateral E' Peak V5.90 cm/s Pulmonary Valve PV Vmax0.8 m/s PV Peak GR2.5 mmHg Tricuspid Valve TR Vmax2.1 m/sRAP (EST) 8 mpSsEXII36.2 mmHg TR Peak GR18.2 mmHg Left Ventricle The left ventricle is normal in size. The basal inferior wall is severely hypokinetic, otherwise ther e is mild global hypokinesis of the left ventricle. Mild concentric left ventricular hypertrophy. Le ft ventricle systolic function is mildly depressed, estimated LVEF is 45 to 50%. Stage I diastolic dy sfunction. Right Ventricle The right ventricle is normal size. The right ventricular systolic function is normal. Atria The left atrium size is normal. The right atrium size is normal. Aortic Valve Aortic valve is trileaflet. The leaflets are mildly thickened and calcified Trace aortic regurgitatio n. There is no aortic valvular stenosis. Mitral Valve Mild mitral annular calcification is noted. The leaflets are mildly thickened and calcified. Mild delores ral regurgitation. There is no mitral valve stenosis. Tricuspid Valve The tricuspid valve is normal in structure and function. Trace tricuspid regurgitation. RVSP is 18 mm Hg. Pulmonic Valve Pulmonic valve is not well visualized. Great Vessels The aortic root is normal in size. IVC is not well visualized. Pericardium No pericardial effusion. Other Information Quality : Good Conclusion Mild concentric left ventricular hypertrophy. The basal inferior wall is severely hypokinetic, otherwise there is mild global hypokinesis of the le ft ventricle. Left ventricle systolic function is mildly depressed, estimated LVEF is 45 to 50%. Stage I diastolic dysfunction. Trace aortic regurgitation. Mild mitral regurgitation. Trace tricuspid regurgitation. RVSP is 18 mmHg. No pericardial effusion.
--- NOTE | 2024-06-04 01:25 | NUR ---
TRANSFER: EMS HERE TO TRANSFER PATIENT TO [facility]. TELE MONITOR DISCONTINUED. PT SENT WITH 20 G IV .SL TO RIGHT AC, NO REDNESS, NO SWELLING, NO TENDERNESS NOTED. ALL PERSONAL BELONGINGS SENT WITH PATIENT.
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
[2024-06-04] MEDS ORDERED: ASPIRIN 81MG CHEW TAB PO SCH (09:00)
[2024-06-04] MEDS ORDERED: FISH OIL 1000 MG/CAP PO SCH (09:00)
== END 2024-06-04 01:25 | disposition short-term general hospital (02) | DRG 92 ==
LOC: EDH 11:30 → EDHIP 13:23 → 4DH 21:55
PROVIDERS: ADMIT Internal Medicine Pulmonary Disease; ATTEND Internal Medicine Pulmonary Disease
DX: I67.1 Cerebral aneurysm, nonruptured (principal); G45.9 Transient cerebral ischemic attack, unspecified; I69.354 Hemiplegia and hemiparesis following cerebral infarction affecting left non-dominant side; I10 Essential (primary) hypertension; F32.A Depression, unspecified; F41.9 Anxiety disorder, unspecified; E11.9 Type 2 diabetes mellitus without complications; E78.00 Pure hypercholesterolemia, unspecified; E66.9 Obesity, unspecified; F17.210 Nicotine dependence, cigarettes, uncomplicated; Z68.31 Body mass index [BMI] 31.0-31.9, adult; Z90.710 Acquired absence of both cervix and uterus; Z79.899 Other long term (current) drug therapy
CPT/HCPCS: 36415; 70450; 70544; 70547; 70551; 71045; 80048; 81001; 82550; 82948; 83036; 83721; 83735; 83880; 84443; 84484; 85025; 85610; 85730; 93005; 93306; 93356; 96374; 99291; G0378; J2405; J3490

== ENCOUNTER → 2025-01-24 | Outpatient (CLI) | payer OTHER ==
[~2025-01-24] MED LIST changes: -CLON0.5T4 PO; -CYCL7.5T27 PO; -LINA72CA PO; -LISI40TA9 PO; -VITA1CAP85 PO
[2025-01-24 13:04] LABS: CREATININE 0.4 mg/dL (0.5-1.0); GLOMERULAR FILTR. RATE CALC 108.0 mL/min (>90); UREA NITROGEN, BLOOD 13.0 mg/dL (7-18)
== END | disposition home or self-care (01) ==
LOC: LAB 11:48
PROVIDERS: ATTEND Internal Medicine Gastroenterology
DX: R10.30 Lower abdominal pain, unspecified (principal)
CPT/HCPCS: 36415; 82565; 84520

== ENCOUNTER → 2025-01-30 | Outpatient (CLI) | payer OTHER ==
[~2025-01-30] MED LIST changes: +IOHEXOL-350 75 ML VIAL IV ONE
--- NOTE | 2025-01-31 02:08 | HMCIMG ---
EXAM: CT Abdomen and Pelvis with IV contrast. CLINICAL HISTORY: Lower abdominal pain. TECHNIQUE: Thin collimated axial CT images of the abdomen and pelvis were obtained with sagittal and coronal reformatted images also submitted. CT scan done according to ALARA (As Low As Reasonably Achievable). Intravenous contrast was administered. COMPARISON: CT abdomen and pelvis with contrast dated 04/20/23. FINDINGS: Unremarkable visualized lung parenchyma. There is no focal abnormality appreciated within the liver, gallbladder, adrenals, or kidneys. The spleen is normal in size and shows a hypodense 1.6 cm lesion. Mild diffuse pancreatic atrophy. Mildly dilated common bile duct measuring up to 0.9 cm. There is no obvious bowel wall thickening. Bowel loops are normal in caliber without evidence of obstruction or ileus. The appendix is not visualized; however, there are no inflammatory changes around the cecum. There is no abnormality within the urinary bladder. Status post hysterectomy and bilateral salpingo-oophorectomy. Abdominal and pelvic vessels are patent. Mild atheromatous calcification of the abdominal aorta No lymphadenopathy. No free fluid. There is no acute osseous abnormality. Moderate degenerative osseous changes and diffuse osteopenia. Postoperative posterior spinal fixation hardware at L3-L4 and L2-L3 intervertebral cage fixation. IMPRESSION: 1. 1.6 cm hypodense splenic lesion, likely hemangioma. 2. Mild diffuse pancreatic atrophy with mildly dilated common bile duct measuring up to 0.9 cm. 3. Status post hysterectomy and bilateral salpingo-oophorectomy. 4. Status post posterior spinal fixation hardware at L3-L4 and L2-L3 with intervertebral cage fixation. 5. Moderate degenerative osseous changes and diffuse osteopenia. No gross interval changes. /Gi
== END | disposition home or self-care (01) ==
LOC: RAH 10:50
PROVIDERS: ATTEND Internal Medicine Gastroenterology
DX: K86.89 Other specified diseases of pancreas (principal); D73.89 Other diseases of spleen; M85.88 Other specified disorders of bone density and structure, other site; R10.30 Lower abdominal pain, unspecified; I70.0 Atherosclerosis of aorta; Z90.722 Acquired absence of ovaries, bilateral; Z90.710 Acquired absence of both cervix and uterus
CPT/HCPCS: 74177; Q9967

== ENCOUNTER → 2025-06-19 | Outpatient (CLI) | payer OTHER ==
[~2025-06-19] MED LIST changes: -IOHEXOL-350 75 ML VIAL IV ONE
[2025-06-19 10:03] LABS: ASPARTATE AMINOTRANSFERASE 27.0 U/L (10-37); CREATININE 0.5 mg/dL (0.5-1.0); GLOMERULAR FILTR. RATE CALC 103.0 mL/min (>90); GLUCOSE,RANDOM 91.0 mg/dL (70-105); SODIUM SERUM 136.0 mmol/L (136-145); TOTAL PROTEIN, SERUM 7.4 g/dL (6.0-8.3); UREA NITROGEN, BLOOD 8.0 mg/dL (7-18)
[2025-06-19 10:17] LABS: IMMATURE GRANULOCYTE ABSOLUTE 0.01 K/uL (0-1); NUCLEATED RED BLOOD CELLS 0.0 % (0.0-0.19); PLATELET COUNT (AUTO) 123 K/uL (130-400); RED BLOOD CELL COUNT(AUTO) 3.99 MIL/uL (4.00-5.50); RED CELL DISTRIBUTION WIDTH 13.5 % (11.0-15.5); WHITE BLOOD COUNT (AUTO) 5.3 K/uL (4.8-10.8)
== END | disposition home or self-care (01) ==
LOC: LAB 09:02
PROVIDERS: ATTEND Internal Medicine Gastroenterology
DX: R10.11 Right upper quadrant pain (principal); R93.2 Abnormal findings on diagnostic imaging of liver and biliary tract; Z00.00 Encounter for general adult medical examination without abnormal findings
CPT/HCPCS: 36415; 80053; 85025